=== PATIENT | female | born 1970 | race Caucasian/White ===

== ENCOUNTER 2025-09-06 22:20 | Inpatient (IN) | payer MEDICAID ==
[~2025-09-06] VITALS: Ht 162.6 cm; Wt 80.1 kg
--- NOTE | 2025-09-06 23:03 | ED.PDOC ---
Back pain HPI HPI Comments 55 y/o F is BIBA from private residence for c/c of right hip pain s/p mechanical fall and injury. Patient reports falling and injuring her right hip after slipping and losing her balance at home 3 week ago. Denies any additional injuries or symptoms and losing consciousness then. She reports on being unable to bear weight and walk on her right leg, due to pain. Patient did not seek medical attention until today. She has been bound to her living room lounge chair at home and, occasionally, transitioning to a nearby commode to use the bathroom. EMS personnel reports on finding patient in said chair, with PMSC's intact and vitals stable and within normal limits. Past medical history: anxiety, COPD, HTN Past surgical history: denies Medications: Albuterol, Lisinopril FARIAS: HPI: Poor Historian. Complains of right hip pain status post mechanical fall from a standing position three weeks ago. Patient has been bed ridden since then. REVIEW OF SYSTEMS: CONSTITUTIONAL: Denies acute: fever, diaphoresis, chills, generalized weakness. HEAD: Denies acute: headache, photophobia Eyes: Denies acute: Double vision, vision loss, eye pain, eye discharge. EARS: Denies acute: tinnitus, hearing loss, ear discharge, ear pain, THROAT: Denies acute: sore throat, swelling, difficulty swallowing , pain with swallowing, change in voice. NECK: Denies acute: neck pain, neck swelling, stiff neck. HEART: Denies acute : chest pain, palpitations, LUNGS: Denies acute: SOB, wheezing, cough, hemoptysis ABDOMEN: Denies acute: abdominal pain, Nausea, Vomiting, diarrhea, melena , hematemesis, hematochezia SKIN: Denies acute: rash, redness, lesions, itchiness. EXTREMITIES: Denies acute: calf pain, numbness, tingling, weakness, denies pain in extremity. Denies acute: Low back pain. Neuro: Denies acute: focal neurological deficit, motor or sensory focal neurological deficit, tremors, seizure like activity, confusion, dizziness, change in mental status, loss of bowel or bladder function, cauda equina like symptoms. : Denies acute: dysuria, hematuria, flank pain, increase in urinary frequency. PSYCH: Denies acute: hallucination, suicidal ideation, homicidal ideation. FEMALE: Denies acute: abnormal vaginal bleeding, foul odor, unusual discharge. PHYSICAL EXAM: General: ----mild----acute distress, awake and alert. Head: normocephalic, atraumatic. No raccoon's eyes, no solomon sign. Neck: supple, trachea is midline, no swelling. Throat: Normal phonation. Eyes:, no erythema, no purulent discharge, no proptosis, no icterus. Heart: regular rate, regular rhythm, no significant murmur appreciated. Lungs: no apparent respiratory distress, Able to speak in full sentences. No wheezing, no rhonchi, no crackles. No stridors Clear to auscultation bilaterally. Abdomen: non tender to palpation, non distended, soft, no guarding, no rebound, + bowel sounds. Neuro: Awake, Alert, oriented to name, self, situation, follows commands GCS=15. Speech is normal. Skin: no petechia, no purpura, no cyanosis, non-pale, not jaundice. Lower extremities: --2/4 b/l - Pitting edema no deformity, no focal swelling, no calf TTP. Makes eye contact. Face: no apparent facial droop. ED COURSE: DISCLAIMER: This medical document was created using an electronic medical record system with voice recognition software and computerized dictation system. Although this document has been carefully reviewed, there might still be some phonetic and typographical errors. Occasional wrong-word or "sound-alike" substitutions may have occurred due to the inherent limitations of voice recognition software. These areas are purely typographical due to imperfections of the software programs and do not reflect any compromise in the patient's medical care. Please read the chart carefully and recognize, using context, where these substitutions have occurred. Chief Complaint: Lower Extremity Time Seen by MD: 22:50 Primary Care Provider: MINGO Reviewed Notes: Crabbing Machine Operator Notes, Allergies Allergies: Coded Allergies: Penicillins (Verified Allergy, Unknown, 10/14/14) Information Source: Patient, Emergency Med Personnel Mode of Arrival: EMS Past Medical History PAST MEDICAL HISTORY: COPD Surgical History: AIR VICE MARSHAL History: No Pertinent AIR VICE MARSHAL History Family History Family History: No family hx of Cancer, Unobtainable Social History Smoker: Cigarettes Alcohol: Occasionally Drugs: Denies Drug Use Lives In: Home Was a procedure done? Was a procedure done?: No Back Pain Differential Dx Differential Diagnosis: Fracture, Musculoskeletal Pain, Strain, Other (Dislocation, referred pain, hematoma, neurovascular injury) X-Ray, Labs, Meds, VS Vital Signs Date Time Temp Pulse Resp B/P (MAP) Pulse Ox O2 Delivery O2 Flow Rate FiO2 09/07/25 03:04 98.1 90 20 127/69 (88) 97 98.1 09/07/25 00:09 102 18 154/92 (112) 100 09/06/25 22:49 98.2 110 18 153/82 94 98.2 Lab Test 09/06/25 23:02 Range/Units White Blood Count 8.3 4.4-10.8 10^3/uL Red Blood Count 3.62 L 4.0-5.20 10^6/uL Hemoglobin 10.7 L 12.2-16.2 g/dL Hematocrit 32.8 L 36.0-46.0 % Mean Corpuscular Volume 90.7 80.0-100.0 fL Mean Corpuscular Hemoglobin 29.5 28.0-32.0 pg Mean Corpuscular Hemoglobin Concent 32.6 32.0-36.0 g/dL Red Cell Distribution Width 16.2 H 11.8-14.3 % Platelet Count 563 H 140-450 10^3/uL Mean Platelet Volume 6.8 L 6.9-10.8 fL Neutrophils (%) (Auto) 73.4 37.0-80.0 % Lymphocytes (%) (Auto) 15.2 10.0-50.0 % Monocytes (%) (Auto) 9.2 0.0-12.0 % Eosinophils (%) (Auto) 1.4 0.0-7.0 % Basophils (%) (Auto) 0.8 0.0-2.0 % Neutrophils # (Auto) 6.1 1.6-8.6 10 ^3/uL Lymphocytes # (Auto) 1.3 0.4-5.4 10 ^3/uL Monocytes # (Auto) 0.8 0-1.3 10 ^3/uL Eosinophils # (Auto) 0.1 0-0.8 10 ^3/uL Basophils # (Auto) 0.1 0-0.2 10 ^3/uL Nucleated Red Blood Cells 0.0 % Sodium Level 133 L 136-145 mmol/L Potassium Level 4.2 3.5-5.1 mmol/L Chloride Level 95 L 98-107 mmol/L Carbon Dioxide Level 29 20-31 mmol/L Anion Gap 9 5-15 Blood Urea Nitrogen 5 L 9-23 mg/dL Creatinine 0.66 0.550-1.02 mg/dL Glomerular Filtration Rate Calc 102 >90 mL/min BUN/Creatinine Ratio 7.6 L 10.0-20.0 Serum Glucose 87 74-106 mg/dL Calcium Level 8.8 8.7-10.4 mg/dL Total Bilirubin 0.3 0.2-1.0 mg/dL Aspartate Amino Transferase (AST) 20 13-40 U/L Alanine Aminotransferase (ALT) 14 7-40 U/L Alkaline Phosphatase 93 46-116 U/L Troponin I High Sensitivity 4 </=34 ng/L B-Type Natriuretic Peptide 35.20 0-100 pg/mL Total Protein 6.3 5.7-8.2 g/dL Albumin 3.6 3.2-4.8 g/dL Current Medications Medications (Trade) Dose Ordered Sig/Cheryl Route Start Time Stop Time Status Last Admin Acetaminophen/ Hydrocodone Bitart ([place] 5/325MG Tab) 1 tab ONCE ONCE PO 09/07/25 03:15 09/07/25 03:16 DC 09/07/25 03:15 [place] [id number] Ph: [phone] DIAGNOSTIC IMAGING Diagnostic Imaging Report : [id number] Signed PATIENT: KAMERON FARIAS ACCT: [id number] UNIT: [id number] : 1970 LOC: ER ROOM / BED: / AGE / SEX: 55 / F ADM STATUS: REG ER SERVICE [id number] ORDERING PHYSICIAN: AD PÉREZ DO PROCEDURE(s): ABPL - CT AB PEL WO CON-NO ORAL OR IV REASON: fall, R HIP PAIN ORDER NUMBER(s): [id number], ACCESSION NUMBER(s): [id number] Exam: CT CT AB PEL WO CON-NO ORAL OR IV History: fall, R HIP PAIN Comparison Study: None Technique: Multidetector spiral CT of the abdomen was performed from lung bases to pubic symphysis. Imaging was performed without IV contrast. Axial, coronal and sagittal multiplanar reformats were obtained from the axial data set by the technologist. Radiation Dose : 1. Abdomen/Pelvis: CTDIvol 6.68 mGy, DLP 388.74 mGy*cm. Findings: Evaluation of solid organs is limited due to lack of intravenous contrast use. Lung Bases: No acute or significant lung base finding. Normal heart size. No pleural or pericardial effusion. Liver: The liver is normal in size. No focal lesions. Gallbladder and Biliary Tree: Unremarkable Spleen: Unremarkable Pancreas: The pancreas is grossly normal in appearance. Adrenal Glands: Unremarkable Kidneys: Kidneys are grossly normal without calculi or hydronephrosis. Bladder: Grossly unremarkable for degree of distention. Bowel: The stomach is grossly normal in appearance. Small bowel and colon are normal in caliber and distribution. The appendix is not visualized; however, no secondary findings of acute appendicitis identified. Ascites: Absent Lymphadenopathy: No mesenteric, retroperitoneal or periportal lymphadenopathy. Abdominal Wall and Mesentery: Unremarkable. Vasculature: The visualized abdominal aorta is normal in size and caliber. Bertha luation of abdominal and pelvic vessels is limited due to lack of intravenous contrast. Pelvic Organs: Unremarkable Musculoskeletal: Comminuted mildly displaced intertrochanteric proximal right femoral fracture with subtrochanteric extension. No large focal hematoma. Hip joint is congruent. No significant hemo arthrosis. IMPRESSION: Comminuted mildly displaced intertrochanteric proximal right femoral fracture with subtrochanteric extension. Radiation optimization: All CT scans at this facility use at least one of these dose optimization techniques: automated exposure control mA and/or kV adjustment per patient size (includes targeted exams where dose is matched to clinical indication) or iterative reconstruction. ATED BY: KAITLYNN NEWBERRY MD DICTATED DATE/TIME: 09/06/252351 SIGNED BY: KAITLYNN NEWBERRY MD SIGNED DATE/TIME: 09/06/252351 CC: Time of 1ST Reevaluation: 22:50 Reevaluation 1ST: Unchanged Patient Education/Counseling: Diagnosis, Treatment Family Education/Counseling: No Family Present Comments MDM: patient presented with the above HPI.---remote fall and right hip p ain---workup was initiated. patient was found with the above mentioned diagnosis. the following medications were ordered: please refer to order lists of meds and tests obtained by myself Dr. Pérez. Patient ED course and VS have been stabilized. Patient has been reassessed in the ED and remained in a stable condition. Pertinent incidental findings were discussed with the patient and/or family. Patient/family voices understanding and is agreeable with plan. Patient has been observed in the ED adequate length of time to insure improvement/stability. Escalation of care considered: Consideration of escalation to observation or admission Patient found with femoral fracture. Patient is neurovascularly intact in the affected extremity. Patient was ADMITTED to the medicine team for further evaluation and treatment of their presentation. All the reports of any imaging studies that were ordered by myself were reviewed by myself. SEPSIS Sepsis Screen Date sepsis recognized/suspect: Sep 06, 2025 Time Sepsis recognized/suspect: 2242 Recent Procedure: No On Antibiotic Therapy: No Respiratory Rate >20: No Heart Rate >90: No Temp<36 C (96.8 F) or >38.3 C: No SBP <90 or MAP <65 mmHG: No New Acute Mental Status Change: No Is the patient on CPAP, BIPAP,: No Physician Orders Ward Attendant (09/06/25 ) Ct Ab Pel Wo Con-No Oral Or Iv (09/06/25 22:55) Bilat Lower Dvt (09/06/25 22:55) Vital Signs Date Time Temp Pulse Resp B/P (MAP) Pulse Ox O2 Delivery O2 Flow Rate FiO2 09/07/25 03:04 98.1 90 20 127/69 (88) 97 98.1 09/07/25 00:09 102 18 154/92 (112) 100 09/06/25 22:49 98.2 110 18 153/82 94 98.2 Laboratory Tests Test 09/06/25 23:02 White Blood Count 8.3 10^3/uL (4.4-10.8) Departure 1 Departure Time of Disposition: 00:11 Impression: Primary Impression: Right femoral fracture Disposition: ADMITTED INPATIENT Admit to: Tele Condition: Guarded Discharged With: Self Critical Care Note Critical Care Time?: No I personally scribed for AD PÉREZ DO ([email or web address]) on 09/06/25 at 23:03. Electronically submitted by Ty Hayden ([email or web address]). I personally scribed for AD PÉREZ DO ([email or web address]) on 09/07/25 at 02:08. Electronically submitted by Ty Hayden ([email or web address]). AD PÉREZ DO Sep 06, 2025 23:03
[2025-09-06 23:22] LABS: Hemoglobin 10.7 g/dL (12.2-16.2); Nucleated Red Blood Cells % 0.0 %
[2025-09-06 23:24] LABS: Hematocrit 32.8 % (36.0-46.0); Mean Corpuscular Hemoglobin 29.5 pg (28.0-32.0); Mean Corpuscular Volume 90.7 fL (80.0-100.0)
[2025-09-06 23:35] LABS: Alanine Aminotransferase 14 U/L (7-40); Albumin 3.6 g/dL (3.2-4.8); Alkaline Phosphatase 93 U/L (46-116); Anion Gap 9 (5-15); BUN/Creatinine Ratio 7.6 (10.0-20.0); Bilirubin, Total 0.3 mg/dL (0.2-1.0); Calcium 8.8 mg/dL (8.7-10.4); Carbon Dioxide 29 mmol/L (20-31); Glucose 87 mg/dL (74-106); Potassium 4.2 mmol/L (3.5-5.1); Total Protein 6.3 g/dL (5.7-8.2)
[2025-09-06 23:36] LABS: Blood Urea Nitrogen 5 mg/dL (9-23); Chloride 95 mmol/L (98-107); Sodium 133 mmol/L (136-145)
--- NOTE | 2025-09-06 23:36 | DVH ---
Bilateral lower extremity venous duplex Clinical History: SWELLING Comparison: None Technique: Duplex Doppler evaluation of the deep venous systems of both lower extremities from the common femoral veins to the popliteal veins including color Doppler and spectral/pulsed waveform analysis was performed. Findings: RIGHT SIDE: The common femoral vein demonstrates appropriate compressibility and waveform variability. There is compressibility/patency of the great saphenous vein at the proximal thigh. The femoral vein demonstrates appropriate compressibility and waveform variability. The deep femoral vein demonstrates appropriate compressibility and waveform variability. The popliteal vein demonstrates appropriate compressibility and waveform variability. There is normal compressibility at the tibioperoneal trunk. LEFT SIDE: The common femoral vein demonstrates appropriate compressibility and waveform variability. There is compressibility/patency of the great saphenous vein at the proximal thigh. The femoral vein demonstrates appropriate compressibility and waveform variability. The deep femoral vein demonstrates appropriate compressibility and waveform variability. The popliteal vein demonstrates appropriate compressibility and waveform variability. There is normal compressibility at the tibioperoneal trunk. Impression: No right or left femoropopliteal venous thrombosis.
--- NOTE | 2025-09-06 23:54 | DVH ---
Exam: CT CT AB PEL WO CON-NO ORAL OR IV History: fall, R HIP PAIN Comparison Study: None Technique: Multidetector spiral CT of the abdomen was performed from lung bases to pubic symphysis. Imaging was performed without IV contrast. Axial, coronal and sagittal multiplanar reformats were obtained from the axial data set by the technologist. Radiation Dose : 1. Abdomen/Pelvis: CTDIvol 6.68 mGy, DLP 388.74 mGy*cm. Findings: Evaluation of solid organs is limited due to lack of intravenous contrast use. Lung Bases: No acute or significant lung base finding. Normal heart size. No pleural or pericardial effusion. Liver: The liver is normal in size. No focal lesions. Gallbladder and Biliary Tree: Unremarkable Spleen: Unremarkable Pancreas: The pancreas is grossly normal in appearance. Adrenal Glands: Unremarkable Kidneys: Kidneys are grossly normal without calculi or hydronephrosis. Bladder: Grossly unremarkable for degree of distention. Bowel: The stomach is grossly normal in appearance. Small bowel and colon are normal in caliber and distribution. The appendix is not visualized; however, no secondary findings of acute appendicitis identified. Ascites: Absent Lymphadenopathy: No mesenteric, retroperitoneal or periportal lymphadenopathy. Abdominal Wall and Mesentery: Unremarkable. Vasculature: The visualized abdominal aorta is normal in size and caliber. Evaluation of abdominal and pelvic vessels is limited due to lack of intravenous contrast. Pelvic Organs: Unremarkable Musculoskeletal: Comminuted mildly displaced intertrochanteric proximal right femoral fracture with subtrochanteric extension. No large focal hematoma. Hip joint is congruent. No significant hemo arthrosis. IMPRESSION: Comminuted mildly displaced intertrochanteric proximal right femoral fracture with subtrochanteric extension. Radiation optimization: All CT scans at this facility use at least one of these dose optimization techniques: automated exposure control mA and/or kV adjustment per patient size (includes targeted exams where dose is matched to clinical indication) or iterative reconstruction.
[2025-09-07] MEDS: HYDROcodone-ACET 5/325MG TAB PO ONE (03:15)
--- NOTE | 2025-09-07 05:10 | DVHHP2 ---
History of Present Illness Reason for Visit: Right femoral fracture History of Present Illness The patient is a 55-year-old female with past medical history of anxiety, COPD, and hypertension who presented to [facility] ED with complaint of right hip pain. Patient reports that she slipped, losing her balance, and fall to her right hip with sustained injury at home 3 weeks ago. Patient did not seek medical attention initially, now unable to bear weight and walk on her right hip due to severe pain. She has been bound to her living room lounge chair at home and, occasionally, transitioning to a nearby commode to use the bathroom. Patient was seen and evaluated in the ED, laboratory data shows WBC 8.3, hemoglobin 10.7, hematocrit 32.8, platelets 563, sodium 133, potassium 4.2, BUN 5, creatinine 0.66, GFR 102, glucose 87, calcium 8.8, troponin 4, BNP 35.20, blood pressure 154/92, heart rate 90, temperature 98.1 F, O2 saturation 97% on room air. Abdomen/pelvis CT revealing comminuted mildly displaced intratrochanteric proximal right femoral fracture with subtrochanteric e xtension. Please see medication orders section in the computer. On my assessment, patient denied chest pain, no headache, dizziness, diaphoresis, loss of consciousness, shortness of breaths, no abdominal pain, nausea, vomiting, fever, no chills. Patient was admitted for further evaluation and medical management. Past Medical History ANXIETY, COPD, HTN Past Surgical History Family History Reviewed, noncontributory to the management of this case. Past Social History The patient lives at home, smokes cigarettes, drinks alcohol occasionally, denies illicit drugs abuse. Review of Systems Constitutional: Yes: Weakness; No: Fever, Chills, Sweats, Malaise, Other Eyes: No: Pain, Vision change, Conjunctivae inflammation, Eyelid inflammation, Other, Redness ENT: No: Ear pain, Ear discharge, Nose pain, Nose discharge, Nose congestion, Mouth pain, Mouth swelling, Throat pain, Throat swelling, Other Respiratory: No: Cough, Dry, Shortness of breath, SOB with excertion, Wheezing, Hemoptysis, Pleuritic Pain, Sputum, Wheezing, Other Cardiovascular: No: Chest Pain, Palpitations, Orthopnea, Paroxysmal Noc. Dyspnea, Edema, Lt Headedness, Other Gastrointestinal: No: Nausea, Vomiting, Abdominal Pain, Diarrhea, Constipation, Melena, Hematochezia, Other Genitourinary: No Dysuria, No Frequency, No Incontinence, No Hematuria, No Retention, No Other Musculoskeletal: other (Right hip pain); No: neck pain, shoulder pain, arm pain, back pain, hand pain, leg pain, foot pain Skin: No: Rash, Lesions, Jaundice, Bruising, Other Neurological: No: Weakness, Numbness, Incoordination, Change in speech, Confusion, Seizures, Other Allergies: Coded Allergies: Penicillins (Verified Allergy, Unknown, 10/14/14) Exam Vital Signs Vital Signs Date Time Temp Pulse Resp B/P (MAP) Pulse Ox O2 Delivery O2 Flow Rate FiO2 09/07/25 03:04 98.1 90 20 127/69 (88) 97 98.1 General Appearance: Alert, Oriented X3, Cooperative, No acute distress HEENT: Atraumatic, PERRLA, EOMI, Mucous membr. moist/pink Respiratory: Normal air movement Cardiovascular: Regular rate, Normal S1, Normal S2, No murmurs Abdominal: Normal bowel sounds, Soft, No tenderness, No hepatospenomegaly, No masses Extremities: No clubbing, No cyanosis, No edema, Normal pulses, Other (Right hip tenderness) Skin: No rashes, No significant lesion Neuro: Normal speech, Normal tone, Sensation intact, Cranial nerves 3-12 NL, Reflexes 2+, Other (Generalized weakness) Psych/Mental Status: Mental status NL, Mood NL Labs/Xrays Labs Test 09/06/25 23:02 Range/Units White Blood Count 8.3 4.4-10.8 10^3/uL Red Blood Count 3.62 L 4.0-5.20 10^6/uL Hemoglobin 10.7 L 12.2-16.2 g/dL Hematocrit 32.8 L 36.0-46.0 % Mean Corpuscular Volume 90.7 80.0-100.0 fL Mean Corpuscular Hemoglobin 29.5 28.0-32.0 pg Mean Corpuscular Hemoglobin Concent 32.6 32.0-36.0 g/dL Red Cell Distribution Width 16.2 H 11.8-14.3 % Platelet Count 563 H 140-450 10^3/uL Mean Platelet Volume 6.8 L 6.9-10.8 fL Neutrophils (%) (Auto) 73.4 37.0-80.0 % Lymphocytes (%) (Auto) 15.2 10.0-50.0 % Monocytes (%) (Auto) 9.2 0.0-12.0 % Eosinophils (%) (Auto) 1.4 0.0-7.0 % Basophils (%) (Auto) 0.8 0.0-2.0 % Neutrophils # (Auto) 6.1 1.6-8.6 10 ^3/uL Lymphocytes # (Auto) 1.3 0.4-5.4 10 ^3/uL Monocytes # (Auto) 0.8 0-1.3 10 ^3/uL Eosinophils # (Auto) 0.1 0-0.8 10 ^3/uL Basophils # (Auto) 0.1 0-0.2 10 ^3/uL Nucleated Red Blood Cells 0.0 % Sodium Level 133 L 136-145 mmol/L Potassium Level 4.2 3.5-5.1 mmol/L Chloride Level 95 L 98-107 mmol/L Carbon Dioxide Level 29 20-31 mmol/L Anion Gap 9 5-15 Blood Urea Nitrogen 5 L 9-23 mg/dL Creatinine 0.66 0.550-1.02 mg/dL Glomerular Filtration Rate Calc 102 >90 mL/min BUN/Creatinine Ratio 7.6 L 10.0-20.0 Serum Glucose 87 74-106 mg/dL Calcium Level 8.8 8.7-10.4 mg/dL Total Bilirubin 0.3 0.2-1.0 mg/dL Aspartate Amino Transferase (AST) 20 13-40 U/L Alanine Aminotransferase (ALT) 14 7-40 U/L Alkaline Phosphatase 93 46-116 U/L Troponin I High Sensitivity 4 </=34 ng/L B-Type Natriuretic Peptide 35.20 0-100 pg/mL Total Protein 6.3 5.7-8.2 g/dL Albumin 3.6 3.2-4.8 g/dL PATIENT: KAMERON FARIAS ACCT: [id number] UNIT: [id number] : 1970 LOC: ER ROOM / BED: / AGE / SEX: 55 / F ADM STATUS: REG ER SERVICE [id number] ORDERING PHYSICIAN: AD PÉREZ DO PROCEDURE(s): ABPL - CT AB PEL WO CON-NO ORAL OR IV REASON: fall, R HIP PAIN ORDER NUMBER(s): [id number], ACCESSION NUMBER(s): [id number] Exam: CT CT AB PEL WO CON-NO ORAL OR IV History: fall, R HIP PAIN Comparison Study: None Technique: Multidetector spiral CT of the abdomen was performed from lung bases to pubic symphysis. Imaging was performed without IV contrast. Axial, coronal and sagittal multiplanar reformats were obtained from the axial data set by the technologist. Radiation Dose: 1. Abdomen/Pelvis: CTDIvol 6.68 mGy, DLP 388.74 mGy*cm. Findings: Evaluation of solid organs is limited due to lack of intravenous contrast use. Lung Bases: No acute or significant lung base finding. Normal heart size. No pleural or pericardial effusion. Liver: The liver is normal in size. No focal lesions. Gallbladder and Biliary Tree: Unremarkable Spleen: Unremarkable Pancreas: The pancreas is grossly normal in appearance. Adrenal Glands: Unremarkable Kidneys: Kidneys are grossly normal without calculi or hydronephrosis. Bladder: Grossly unremarkable for degree of distention. Bowel: The stomach is grossly normal in appearance. Small bowel and colon are normal in caliber and distribution. The appendix is not visualized; however, no secondary findings of acute appendicitis identified. Ascites: Absent Lymphadenopathy: No mesenteric, retroperitoneal or periportal lymphadenopathy. Abdominal Wall and Mesentery: Unremarkable. Vasculature: The visualized abdominal aorta is normal in size and caliber. Evaluation of abdominal and pelvic vessels is limited due to lack of intravenous contrast. Pelvic Organs: Unremarkable Musculoskeletal: Comminuted mildly displaced intertrochanteric proximal right femoral fracture with subtrochanteric extension. No large focal hematoma. Hip joint is congruent. No significant hemo arthrosis. IMPRESSION: Comminuted mildly displaced intertrochanteric proximal right femoral fracture with subtrochanteric extension. ORDERING PHYSICIAN: AD PÉREZ DO PROCEDURE(s): BLDVT - BiLat Lower DVT REASON: SWELLING ORDER NUMBER(s): [id number], ACCESSION NUMBER(s): [id number] Bilateral lower extremity venous duplex Clinical History: SWELLING Comparison: None Technique: Duplex Doppler evaluation of the deep venous systems of both lower extremities from the common femoral veins to the popliteal veins including color Doppler and spectral/pulsed waveform analysis was performed. Findings: RIGHT SIDE: The common femoral vein demonstrates appropriate compressibility and waveform variability. There is compressibility/patency of the great saphenous vein at the proximal thigh. The femoral vein demonstrates appropriate compressibility and waveform variability. The deep femoral vein demonstrates appropriate compressibility and waveform variability. The popliteal vein demonstrates appropriate compressibility and waveform variability. There is normal compressibility at the tibioperoneal trunk. LEFT SIDE: The common femoral vein demonstrates appropriate compressibility and waveform variability. There is compressibility/patency of the great saphenous vein at the proximal thigh. The femoral vein demonstrates appropriate compressibility and waveform variability. The deep femoral vein demonstrates appropriate compressibility and waveform variability. The popliteal vein demonstrates appropriate compressibility and waveform variability. There is normal compressibility at the tibioperoneal trunk. Impression: No right or left femoropopliteal venous thrombosis. SEPSIS Sepsis Screen Date sepsis recognized/suspect: Sep 06, 2025 Time Sepsis recognized/suspect: 2242 Recent Procedure: No On Antibiotic Therapy: No Respiratory Rate >20: No Heart Rate >90: No Temp<36 C (96.8 F) or >38.3 C: No SBP <90 or MAP <65 mmHG: No New Acute Mental Status Change: No Is the patient on CPAP, BIPAP,: No Physician Orders [place] [employer] (09/06/25 ) Ct Ab Pel Wo Con-No Oral Or Iv (09/06/25 22:55) Bilat Lower Dvt (09/06/25 22:55) Complete Blood Count (09/07/25 05:04) Comprehensive Metabolic Panel (09/07/25 05:04) * Orthopedic Consult (09/07/25 05:04) Admit (09/07/25 05:04) Allergies (09/07/25 05:04) Code Status (09/07/25 05:04) Oxygen Per Hour (09/07/25 05:04) Hydrocodone-Acet 5/325mg Tab ([place] 5/32 (09/07/25 05:15) Ondansetron Hcl (Zofran) (09/07/25 05:15) Docusate Sodium Capsule (Colace Capsule) (09/07/25 05:15) Enoxaparin Sodium (Lovenox) (09/07/25 10:00) Fall Risk Precautions In Place QSHIFT (09/07/25 05:04) Complete Blood Count (09/08/25 04:00) Comprehensive Metabolic Panel (09/08/25 04:00) Npo (Nothing By Mouth) Diet (09/07/25 Breakfast) Condition: Serious (09/07/25 05:04) Acetaminophen Tablet (Tylenol Tablet) (09/07/25 05:15) Maintain Bed Rest (09/07/25 05:04) Morphine Sulfate Injection (09/07/25 05:15) Sequential Compression Device (09/07/25 ) Nitroglycerin Sublingual (Ntrostat Subli (09/07/25 05:15) Morphine Sulfate Injection (09/07/25 05:15) Stat Ekg For Chest Pain (09/07/25 05:04) Notify Of Changes From Base (09/07/25 05:04) Cook Night For 24 Hours (09/07/25 05:04) Emergency Dysrhythmia Protocol (09/07/25 05:04) Rhythm Strips Once Every Shift (09/07/25 05:04) Oxygen By Nasal Cannula (09/07/25 05:04) D5w/Sod Chlo 0.9% Ns (09/07/25 05:15) Vital Signs Date Time Temp Pulse Resp B/P (MAP) Pulse Ox O2 Delivery O2 Flow Rate FiO2 09/07/25 03:04 98.1 90 20 127/69 (88) 97 98.1 09/07/25 00:09 102 18 154/92 (112) 100 09/06/25 22:49 98.2 110 18 153/82 94 98.2 Laboratory Tests Test 09/06/25 23:02 White Blood Count 8.3 10^3/uL (4.4-10.8) Medications Medications Dose Ordered Sig/Cheryl Route Start Time Stop Time Status Last Admin Dose Admin Acetaminophen/ Hydrocodone Bitart 1 tab ONCE ONCE PO 09/07/25 03:15 09/07/25 03:16 DC 09/07/25 03:15 1 TAB Assessment/Plan Assessment/Plan Right femoral fracture Hyponatremia Thrombocytosis Generalized weakness Plan 1. Admit to telemetry unit 2. Breathing treatment 3. Pain control management 4. Management of fluids and electrolytes 5. Consultation for orthopedic 6. Diagnostic tests abdomen/pelvis CT 7. DVT prophylaxis-on Lovenox 8. Repeat labs CBC, CMP in a.m. 9. Continue with current medical management 10. Treatment plan discussed with patient and RN. Patient verbalized understanding. Plan discussed with: Patient, Other (RN) My Orders Orders - DENISE WILSON DNP Procedure Category Date Status Time Complete Blood Count LAB 09/07/25 Verified 05:04 Comprehensive LAB 09/07/25 Verified Metabolic Panel 05:04 * Orthopedic Consult CONS 09/07/25 Verified 05:04 Admit ADMIT 09/07/25 Verified 05:04 Allergies [facility] 09/07/25 Verified 05:04 Code Status CODE 09/07/25 Verified 05:04 Oxygen Per Hour RT 09/07/25 Verified 05:04 Hydrocodone-Acet PHA 09/07/25 Verified 5/325mg Tab ([place] 05:15 Ondansetron Hcl PHA 09/07/25 Verified (Zofran) 05:15 Docusate Sodium PHA 09/07/25 Verified Capsule (Colace 05:15 Enoxaparin Sodium PHA 09/07/25 Verified (Lovenox) 10:00 Fall Risk Precautions [facility] 09/07/[address] 05:04 Complete Blood Count LAB 09/08/25 Verified 04:00 Comprehensive LAB 09/08/25 Verified Metabolic Panel 04:00 Npo (Nothing By DIET 09/07/25 Verified Mouth) Diet Breakfast Condition: Serious [facility] 09/07/25 Verified 05:04 Acetaminophen Tablet [facility] 09/07/25 Verified (Tylenol Tablet) 05:15 Maintain Bed Rest [facility] 09/07/25 Verified 05:04 Morphine Sulfate [facility] 09/07/25 Verified Injection 05:15 Sequential [facility] 09/07/25 Verified Compression Device Nitroglycerin [facility] 09/07/25 Verified Sublingual (Ntrostat 05:15 Morphine Sulfate [facility] 09/07/25 Verified Injection 05:15 Stat Ekg For Chest [facility] 09/07/25 Verified Pain 05:04 Notify Md Of Changes [facility] 09/07/25 Verified From Base 05:04 Cook Night For [facility] 09/07/25 Verified 24 Hours 05:04 Emergency Dysrhythmia [facility] 09/07/25 Verified Protocol 05:04 Rhythm Strips Once [facility] 09/07/25 Verified Every Shift 05:04 Oxygen By Nasal RT 09/07/25 Verified Cannula 05:04 D5w/Sod Chlo 0.9% Ns PHA 09/07/25 Verified 05:15 Problem List: (1) Right femoral fracture (2) Hyponatremia (3) Thrombocytosis (4) Generalized weakness Date of Service: Sep 07, 2025 Billing Provider: DENISE WILSON DNP Common Visit Codes: [id number] INP/OBS CARE (HIGH) DENISE WILSON DNP Sep 07, 2025 05:10
[2025-09-07] MEDS ORDERED: MORPHINE SULFATE INJ 2 MG/ml SYRG IV PRN (05:15)
[2025-09-07] MEDS: D5W/SOD CHLO 0.9% 1,000 ML IV SCH (05:15)
[2025-09-07] MEDS ORDERED: NITROGLYCERIN 0.4 MG SL TAB SL PRN (05:15)
[2025-09-07] MEDS ORDERED: ACETAMINOPHEN 325 MG TAB PO PRN (05:15)
[2025-09-07] MEDS ORDERED: DOCUSATE SOD 100 MG CAP PO PRN (05:15)
[2025-09-07] MEDS ORDERED: ONDANSETRON HCL 4 MG/2 ML VIAL IV PRN (05:15)
[2025-09-07 06:55] VITALS: PULSE 80; RESP 20; O2SAT 97
[2025-09-07 06:57] LABS: Hematocrit 28.2 % (36.0-46.0); Hemoglobin 9.5 g/dL (12.2-16.2); Mean Corpuscular Hemoglobin 30.6 pg (28.0-32.0); Mean Corpuscular Volume 91.1 fL (80.0-100.0); Nucleated Red Blood Cells % 0.0 %
[2025-09-07 07:12] LABS: Alanine Aminotransferase 11 U/L (7-40); Alkaline Phosphatase 81 U/L (46-116); Anion Gap 10 (5-15); BUN/Creatinine Ratio 8.3 (10.0-20.0); Bilirubin, Total 0.5 mg/dL (0.2-1.0); Carbon Dioxide 28 mmol/L (20-31); Potassium 4.3 mmol/L (3.5-5.1)
[2025-09-07 07:16] LABS: Albumin 3.1 g/dL (3.2-4.8); Blood Urea Nitrogen 5 mg/dL (9-23); Calcium 8.6 mg/dL (8.7-10.4); Chloride 96 mmol/L (98-107); Glucose 121 mg/dL (74-106); Sodium 134 mmol/L (136-145); Total Protein 5.5 g/dL (5.7-8.2)
[2025-09-07 07:34] VITALS: PULSE 102; RESP 12; O2SAT 99
--- NOTE | 2025-09-07 07:50 | DVH ---
CLINICAL INDICATION: fracture TECHNIQUE: XY R HIP COMPLETE XRAY Comparison: None FINDINGS/IMPRESSION: : Comminuted , angulated and displaced fracture involving the greater trochanter and proximal femur.
[2025-09-07] MEDS: SODIUM CHLORIDE 0.9% 1,000 ML IV SCH (08:24)
[2025-09-07] MEDS: MORPHINE SULFATE INJ 2 MG/ml SYRG IV PRN (08:26)
[2025-09-07 08:30] LABS: INR 0.96 (0.9-1.15); Prothrombin Time 10.2 sec (9.3-11.8)
[2025-09-07] MEDS: HYDROcodone-ACET 5/325MG TAB PO PRN (10:32)
[2025-09-07] MEDS: ENOXAPARIN SOD 40 MG/0.4 ML SYRINGE SC SCH (10:33)
--- NOTE | 2025-09-07 13:11 | DVHPN2 ---
Subjective 55-year-old female who fell about 3 weeks ago outside of her house when she was drunk and she continued to ambulate on her leg on and off with assistance however the pain was not subsiding and she has been more disabled since then to the point she decided to come to the emergency room now and was found to have an intertrochanteric fracture of the right femur Changes from previous H/P or p: Changes Eyes: No Pain, No Vision change, No Conjunctivae inflammation, No Eyelid inflammation, No Other, No Redness ENT: No Ear pain, No Ear discharge, No Nose pain, No Nose discharge, No Nose congestion, No Mouth pain, No Mouth swelling, No Throat pain, No Throat swelling, No Other Cardiovascular: No Chest Pain, No Palpitations, No Orthopnea, No Paroxysmal Noc. Dyspnea, No Edema, No Lt Headedness, No Other Respiratory: No Cough, No Dry, No Shortness of breath, No SOB with excertion, No Wheezing, No Hemoptysis, No Pleuritic Pain, No Sputum, No Other Gastrointestinal: No Nausea, No Vomiting, No Abdominal Pain, No Diarrhea, No Constipation, No Melena, No Hematochezia, No Other Genitourinary: No Dysuria, No Frequency, No Incontinence, No Hematuria, No Retention, No Other Musculoskeletal: other (Right hip pain); No neck pain, No shoulder pain, No arm pain, No back pain, No hand pain, No leg pain, No foot pain Skin: No Rash, No Lesions, No Jaundice, No Bruising, No Other Objective Vitals Vital Signs Date Time Temp Pulse Resp B/P (MAP) Pulse Ox O2 Delivery O2 Flow Rate FiO2 09/07/25 09:00 79 18 111/72 09/07/25 07:34 99 Room Air* 0 21 09/07/25 07:34 97.7 97.7 General Appearance: Alert, Oriented X3, Cooperative, No acute distress Lungs: Clear to auscultation, Normal air movement Cardiovascular: Regular rate, Normal S1, Normal S2, No murmurs Abdomen: Normal bowel sounds, Soft, No tenderness Extremities: Other (1+ edema bilaterally in the lower extremities) Medications Current Medications Medications Dose Ordered Sig/Cheryl Route Start Time Stop Time Status Last Admin Dose Admin Acetaminophen/ Hydrocodone Bitart 1 tab Q4HP PRN PO 09/07/25 05:15 09/07/25 10:32 1 TAB Ondansetron HCl 4 mg Q4HP PRN IV 09/07/25 05:15 Docusate Sodium 100 mg BIDPRN PRN PO 09/07/25 05:15 Enoxaparin Sodium 40 mg DAILY SC 09/07/25 10:00 09/07/25 10:33 40 MG Acetaminophen 650 mg Q6HP PRN PO 09/07/25 05:15 Morphine Sulfate 2 mg Q4HPRN PRN IV 09/07/25 05:15 09/07/25 08:26 2 MG Nitroglycerin 0.4 mg Q5MINP PRN SL 09/07/25 05:15 Morphine Sulfate 2 mg Q30M PRN IV 09/07/25 05:15 Sodium Chloride 1,000 ml @ 75 mls/hr [id number] IV 09/07/25 07:00 09/07/25 08:24 75 MLS/HR Laboratory Results Laboratory Tests 09/07/25 06:23 Chemistry Test 09/06/25 23:02 09/07/25 06:23 Albumin 3.6 g/dL (3.2-4.8) 3.1 g/dL (3.2-4.8) L Calcium Level 8.8 mg/dL (8.7-10.4) 8.6 mg/dL (8.7-10.4) L Total Protein 6.3 g/dL (5.7-8.2) 5.5 g/dL (5.7-8.2) L Coagulation Test 09/07/25 06:23 Prothrombin Time 10.2 sec (9.3-11.8) Prothrombin Time INR 0.96 (0.9-1.15) Cardiac Markers Test 09/06/25 23:02 B-Type Natriuretic Peptide 35.20 pg/mL (0-100) LFT Test 09/06/25 23:02 09/07/25 06:23 Alanine Aminotransferase (ALT) 14 U/L (7-40) 11 U/L (7-40) Alkaline Phosphatase 93 U/L (46-116) 81 U/L (46-116) Aspartate Amino Transferase (AST) 20 U/L (13-40) 21 U/L (13-40) Total Bilirubin 0.3 mg/dL (0.2-1.0) 0.5 mg/dL (0.2-1.0) Assessment/Plan Assessment/Plan Right intertrochanteric femur fracture Alcoholism Tobacco smoking Hypertension COPD Anxiety Plan Orthopedic consult Nicotine patch Ativan p.r.n. Librium Pain control as needed Tom catheter Lovenox Full code Advance directives discussed for 20 minutes Plan discussed with: Patient Date of Service: Sep 07, 2025 Billing Provider: SG LUTHER MD Common Visit Codes: [id number] INP/OBS CARE(HIGH) Secondary Visit Codes: [id number] CARE PLAN 30 MINUTES SG LUTHER MD Sep 07, 2025 13:11
[2025-09-07] MEDS: NICOTINE 21MG/24 HR TOPICAL PATCH TD ONE (13:29)
--- NOTE | 2025-09-07 15:09 | DVHINCON2 ---
Date of service: Sep 07, 2025 Reason for Consultation Right hip fracture History of Present Illness 55 yo F with hx of fall over 2 weeks ago with right hip pain/ unable to bear weight. Hx of COPD/chronic smoker/ alcoholism with 10 beers per day/ bilateral extremity swelling. No cp/sob/abd pain/nausea/vomiting Past Medical History Past medical history: anxiety, COPD, HTN, chronic smoker and alcoholism Past surgical history: denies Medications: Albuterol, Lisinopril Allergies: Coded Allergies: Penicillins (Verified Allergy, Unknown, 10/14/14) Current Medications Current Medications Medications (Trade) Dose Ordered Sig/Cheryl Route PRN Reason Start Time Stop Time Status Last Admin Acetaminophen/ Hydrocodone Bitart ([place] 5/325MG Tab) 1 tab Q4HP PRN PO MODERATE PAIN (4-6 PAIN SCALE) 09/07/25 05:15 09/07/25 10:32 Ondansetron HCl (Zofran) 4 mg Q4HP PRN IV NAUSEA / VOMITING 09/07/25 05:15 Docusate Sodium (Colace Capsule) 100 mg BIDPRN PRN PO FOR CONSTIPATION 09/07/25 05:15 Enoxaparin Sodium (Lovenox) 40 mg DAILY SC 09/07/25 10:00 09/07/25 10:33 Acetaminophen (Tylenol Tablet) 650 mg Q6HP PRN PO PAIN SCALE 1-3 OR TEMP>100.4 09/07/25 05:15 Morphine Sulfate 2 mg Q4HPRN PRN IV SEVERE PAIN (7-10 PAIN SCALE) 09/07/25 05:15 09/07/25 13:30 Nitroglycerin (Ntrostat Sublingual) 0.4 mg Q5MINP PRN SL FOR CHEST PAIN 09/07/25 05:15 Morphine Sulfate 2 mg Q30M PRN IV FOR CHEST PAIN 09/07/25 05:15 Dextrose/Sodium Chloride 1,000 ml @ 75 mls/hr [id number] IV 09/07/25 05:15 09/07/25 06:53 DC 09/07/25 05:15 Sodium Chloride 1,000 ml @ 75 mls/hr [id number] IV 09/07/25 07:00 09/07/25 13:08 DC 09/07/25 08:24 Nicotine (Nicoderm 21MG/ 24HR) 1 patch DAILY TD 09/08/25 10:00 Lorazepam (Ativan Inj) 0.5 mg Q6HP PRN IV ANXIETY 09/07/25 13:15 Review of Systems 10 point ROS is neg except per HPI Vital Signs Vital Signs Date Time Temp Pulse Resp B/P (MAP) Pulse Ox O2 Delivery O2 Flow Rate FiO2 09/07/25 13:30 95 18 111/72 09/07/25 07:34 99 Room Air* 0 21 09/07/25 07:34 97.7 97.7 Physical Exam NAD RLE: shortened +ta/gs/ehl/fhl swellign 3+ in legs Labs/Diagnostic Data Labs Test 09/07/25 06:23 09/06/25 23:02 Range/Units White Blood Count 8.2 4.4-10.8 10^3/uL Red Blood Count 3.09 L 4.0-5.20 10^6/uL Hemoglobin 9.5 L 12.2-16.2 g/dL Hematocrit 28.2 #L 36.0-46.0 % Mean Corpuscular Volume 91.1 80.0-100.0 fL Mean Corpuscular Hemoglobin 30.6 28.0-32.0 pg Mean Corpuscular Hemoglobin Concent 33.6 32.0-36.0 g/dL Red Cell Distribution Width 16.1 H 11.8-14.3 % Platelet Count 460 H 140-450 10^3/uL Mean Platelet Volume 6.9 6.9-10.8 fL Neutrophils (%) (Auto) 70.4 37.0-80.0 % Lymphocytes (%) (Auto) 15.3 10.0-50.0 % Monocytes (%) (Auto) 11.5 0.0-12.0 % Eosinophils (%) (Auto) 1.9 0.0-7.0 % Basophils (%) (Auto) 0.9 0.0-2.0 % Neutrophils # (Auto) 5.8 1.6-8.6 10 ^3/uL Lymphocytes # (Auto) 1.2 0.4-5.4 10 ^3/uL Monocytes # (Auto) 0.9 0-1.3 10 ^3/uL Eosinophils # (Auto) 0.2 0-0.8 10 ^3/uL Basophils # (Auto) 0.1 0-0.2 10 ^3/uL Nucleated Red Blood Cells 0.0 % Prothrombin Time 10.2 9.3-11.8 sec Prothrombin Time INR 0.96 0.9-1.15 Sodium Level 134 L 136-145 mmol/L Potassium Level 4.3 3.5-5.1 mmol/L Chloride Level 96 L 98-107 mmol/L Carbon Dioxide Level 28 20-31 mmol/L Anion Gap 10 5-15 Blood Urea Nitrogen 5 L 9-23 mg/dL Creatinine 0.60 0.550-1.02 mg/dL Glomerular Filtration Rate Calc 105 >90 mL/min BUN/Creatinine Ratio 8.3 L 10.0-20.0 Serum Glucose 121 H 74-106 mg/dL Calcium Level 8.6 L 8.7-10.4 mg/dL Total Bilirubin 0.5 0.2-1.0 mg/dL Aspartate Amino Transferase (AST) 21 13-40 U/L Alanine Aminotransferase (ALT) 11 7-40 U/L Alkaline Phosphatase 81 46-116 U/L Total Protein 5.5 L 5.7-8.2 g/dL Albumin 3.1 L 3.2-4.8 g/dL Troponin I High Sensitivity 4 </=34 ng/L B-Type Natriuretic Peptide 35.20 0-100 pg/mL Plan/Recommendation 55 yo F with comminuted right hip intertrochanter fracture - over 2 weeks old 1. I had a long discussion with the patient regarding her condition. Questions for patient answered. Risks benefits options and alternatives reviewed in depth. RIsks include but not exclusive to bleeding infection nerve injury hardware failure nonunion malunion chronic pain blood clots cardiac and pulmonary complications amputation and . Patient understands the morbidity and mortality of hip fractures in the elderly. She wishes to proceed with surgery 2. Plan for open reduction internal fixation of right hip fracture 3. npo/ivf 4. pain control Plan discussed with: Patient JAYLAN NEWBERRY MD Sep 07, 2025 15:09
--- NOTE | 2025-09-07 15:36 | DVH ---
CHEST RADIOGRAPH Indication: PRE-OPERATIVE Technique: Single frontal view of the chest was obtained COMPARISON: None FINDINGS: Lines and Tubes: None Lungs: Increased interstitial prominence. This may represent pulmonary vascular congestion and/or viral pneumonia. Pleura: No effusion. No pneumothorax. Cardiomediastinal contours: Unremarkable Bones: Unremarkable IMPRESSION: Increased interstitial prominence. This may represent pulmonary vascular congestion and/or viral pneumonia.
[2025-09-07 15:44] VITALS: BP 139/76; PULSE 91; RESP 18; TEMP 97.8; O2SAT 94
[2025-09-07] MEDS: LORazepam 2MG/ML-1ML VIAL IV PRN (16:45)
[2025-09-07 17:00] VITALS: BP 133/76; PULSE 90; RESP 18; TEMP 97.9; O2SAT 97
--- NOTE | 2025-09-07 17:00 | DVHSR ---
APPROVED REPORT EXAM: Two-dimensional and M-mode echocardiogram with Doppler and color Doppler. Blood Pressure: 139/76 mmHg INDICATION Pre-Op RISK FACTORS Height: 5'4", Weight: 140 DIMENSIONS LVDd 4.2 (3.8-5.7cm) LA (2D) 3.5 (1.9-4.0cm) Aortic Root 3.1 (2.0-3.7cm) LVDs 3.0 (2.5-4.0cm) LA (MM) (1.9-4.0cm) Aortic Cusp Exc 1.7 (1.5-2.0cm) EF (%) 60.0 (55-70%) Rt. Atrium 3.3 (1.9-4.0cm) Asc. Aorta cm IVSd 0.8 (0.7-1.1cm) RV (D) 3.5 (1.8-2.4cm) PWd 0.8 (0.7-1.1cm) Mitral Valve Mitral Mitral Stenosis E wave 1.11m/s MV Mean GR. mmHg A wave 0.84m/s MV Peak GR. mmHg E/A ratio 1.3 2D MVA cm2 DECEL Time 169ms PRESS 1/2 Time ms Aortic Valve Aortic Valve Aortic Stenosis V1 1.06m/s AO Mean GR. 5mmHg V2 1.54m/s AO Peak GR. 9mmHg LVOT Diameter 1.8 (1.8-2.4cm) Doppler LUIS 1.75cm2 Tricuspid Valve TR Velocity 3.31m/s RVSP 47mmHg Conclusion Technically good study sinus rhythm. Normal chamber sizes. Valves are normal. EF of 60% with normal RV function. Dopplers unremarkable. Moderate TR. No pericardial effusion masses or vegetations.
--- NOTE | 2025-09-07 18:30 | DVHINCON2 ---
Date Seen: Sep 07, [address] Huddleston Reason for Consultation Cardiac clearance History of Present Illness 55-year-old lady with a history of severe COPD and associated hypertension at a recent fall and hip fracture. She did not have a syncopal event. She denies chest pain. She does have shortness of breath secondary to COPD. She denies congestive heart failure, coronary artery disease. She continues to smoke and was diagnosed with COPD. Past Medical History Past Medical History ANXIETY, COPD, HTN Past Surgical History Past Surgical History History of Family History: Patient reports no known family medical history. Allergies: Coded Allergies: Penicillins (Verified Allergy, Unknown, 10/14/14) Current Medications Current Medications Medications (Trade) Dose Ordered Sig/Cheryl Route PRN Reason Start Time Stop Time Status Last Admin Acetaminophen/ Hydrocodone Bitart ([place] 5/325MG Tab) 1 tab Q4HP PRN PO MODERATE PAIN (4-6 PAIN SCALE) 09/07/25 05:15 09/07/25 15:42 Ondansetron HCl (Zofran) 4 mg Q4HP PRN IV NAUSEA / VOMITING 09/07/25 05:15 Docusate Sodium (Colace Capsule) 100 mg BIDPRN PRN PO FOR CONSTIPATION 09/07/25 05:15 Enoxaparin Sodium (Lovenox) 40 mg DAILY SC 09/07/25 10:00 09/07/25 10:33 Acetaminophen (Tylenol Tablet) 650 mg Q6HP PRN PO PAIN SCALE 1-3 OR TEMP>100.4 09/07/25 05:15 Morphine Sulfate 2 mg Q4HPRN PRN IV SEVERE PAIN (7-10 PAIN SCALE) 09/07/25 05:15 09/07/25 13:30 Nitroglycerin (Ntrostat Sublingual) 0.4 mg Q5MINP PRN SL FOR CHEST PAIN 09/07/25 05:15 Morphine Sulfate 2 mg Q30M PRN IV FOR CHEST PAIN 09/07/25 05:15 Dextrose/Sodium Chloride 1,000 ml @ 75 mls/hr [id number] IV 09/07/25 05:15 09/07/25 06:53 DC 09/07/25 05:15 Sodium Chloride 1,000 ml @ 75 mls/hr [id number] IV 09/07/25 07:00 09/07/25 13:08 DC 09/07/25 08:24 Nicotine (Nicoderm 21MG/ 24HR) 1 patch DAILY TD 09/08/25 10:00 Lorazepam (Ativan Inj) 0.5 mg Q6HP PRN IV ANXIETY 09/07/25 13:15 09/07/25 16:45 Review of Systems Constitutional: Yes: Weakness; No: Fever, Chills, Sweats, Malaise, Other Eyes: No: Pain, Vision change, Conjunctivae inflammation, Eyelid inflammation, Other, Redness ENT: No: Ear pain, Ear discharge, Nose pain, Nose discharge, Nose congestion, Mouth pain, Mouth swelling, Throat pain, Throat swelling, Other Respiratory: No: Cough, Dry, Shortness of breath, SOB with excertion, Wheezing, Hemoptysis, Pleuritic Pain, Sputum, Wheezing, Other Cardiovascular: No: Chest Pain, Palpitations, Orthopnea, Paroxysmal Noc. Dyspnea, Edema, Lt Headedness, Other Gastrointestinal: No: Nausea, Vomiting, Abdominal Pain, Diarrhea, Constipation, Melena, Hematochezia, Other Genitourinary: No Dysuria, No Frequency, No Incontinence, No Hematuria, No Retention, No Other Musculoskeletal: other (Right hip pain); No: neck pain, shoulder pain, arm pain, back pain, hand pain, leg pain, foot pain Skin: No: Rash, Lesions, Jaundice, Bruising, Other Neurological: No: Weakness, Numbness, Incoordination, Change in speech, Co nfusion, Seizures, Other Vital Signs Vital Signs Date Time Temp Pulse Resp B/P (MAP) Pulse Ox O2 Delivery O2 Flow Rate FiO2 09/07/25 17:00 97.9 90 18 133/76 (95) 97 97.9 09/07/25 15:44 Nasal Cannula* 3 32 Physical Exam Patient is awake alert and oriented no acute distress. Her vitals are as noted. HEENT examination is otherwise unremarkable. Orally well hydrated. Trachea central neck supple thyroid is nonpalpable. No jugular Distention no bruits. Lungs reveal diminished air entry bilaterally. Increased expiratory Phase secondary to COPD. Heart exam reveals regular S1-S2 soft S4. Abdominal examination is unremarkable. Extremities show adequate perfusion mild edema bilaterally. Decreased range of motion of the right leg secondary to hip fracture. Neurologically intact. Labs/Diagnostic Data Labs Test 09/07/25 06:23 09/06/25 23:02 Range/Units White Blood Count 8.2 4.4-10.8 10^3/uL Red Blood Count 3.09 L 4.0-5.20 10^6/uL Hemoglobin 9.5 L 12.2-16.2 g/dL Hematocrit 28.2 #L 36.0-46.0 % Mean Corpuscular Volume 91.1 80.0-100.0 fL Mean Corpuscular Hemoglobin 30.6 28.0-32.0 pg Mean Corpuscular Hemoglobin Concent 33.6 32.0-36.0 g/dL Red Cell Distribution Width 16.1 H 11.8-14.3 % Platelet Count 460 H 140-450 10^3/uL Mean Platelet Volume 6.9 6.9-10.8 fL Neutrophils (%) (Auto) 70.4 37.0-80.0 % Lymphocytes (%) (Auto) 15.3 10.0-50.0 % Monocytes (%) (Auto) 11.5 0.0-12.0 % Eosinophils (%) (Auto) 1.9 0.0-7.0 % Basophils (%) (Auto) 0.9 0.0-2.0 % Neutrophils # (Auto) 5.8 1.6-8.6 10 ^3/uL Lymphocytes # (Auto) 1.2 0.4-5.4 10 ^3/uL Monocytes # (Auto) 0.9 0-1.3 10 ^3/uL Eosinophils # (Auto) 0.2 0-0.8 10 ^3/uL Basophils # (Auto) 0.1 0-0.2 10 ^3/uL Nucleated Red Blood Cells 0.0 % Prothrombin Time 10.2 9.3-11.8 sec Prothrombin Time INR 0.96 0.9-1.15 Sodium Level 134 L 136-145 mmol/L Potassium Level 4.3 3.5-5.1 mmol/L Chloride Level 96 L 98-107 mmol/L Carbon Dioxide Level 28 20-31 mmol/L Anion Gap 10 5-15 Blood Urea Nitrogen 5 L 9-23 mg/dL Creatinine 0.60 0.550-1.02 mg/dL Glomerular Filtration Rate Calc 105 >90 mL/min BUN/Creatinine Ratio 8.3 L 10.0-20.0 Serum Glucose 121 H 74-106 mg/dL Calcium Level 8.6 L 8.7-10.4 mg/dL Total Bilirubin 0.5 0.2-1.0 mg/dL Aspartate Amino Transferase (AST) 21 13-40 U/L Alanine Aminotransferase (ALT) 11 7-40 U/L Alkaline Phosphatase 81 46-116 U/L Total Protein 5.5 L 5.7-8.2 g/dL Albumin 3.1 L 3.2-4.8 g/dL Troponin I High Sensitivity 4 </=34 ng/L B-Type Natriuretic Peptide 35.20 0-100 pg/mL EKG shows a sinus rhythm with nonspecific T-wave changes. Echocardiographic evaluation shows normal left ventricular function. EF gradient 60%. Assessment History of significant COPD secondary to smoking. Status post hip fracture. Patient is a low to moderate risk given her history of COPD. No cardiac history of congestive heart failure or angina and/or chest pain. Plan/Recommendation Given her asymptomatic nature patient is cleared to undergo hip surgery. Normal ejection fraction verified. Plan discussed with: Patient NYHA Physical activity limitations: Class1(None)absent sob, Date of Service: Sep 07, 2025 Billing Provider: DEYSI FINLEY Sr., MD Cardiology Common Codes: [id number] INP/OBS CARE (High) DEYSI FINLEY Sr., MD Sep 07, 2025 18:30
[2025-09-07 20:00] VITALS: PULSE 91
[2025-09-07 21:00] VITALS: BP 112/66; PULSE 82; RESP 18; TEMP 97.6; O2SAT 97
[2025-09-07 23:58] LABS: Urine Protein, UAD TRACE (Negative)
[2025-09-08] VITALS (17 sets, daily range): BP systolic 91–134; BP diastolic 71–77; PULSE 87–134; RESP 16–21; TEMP 97.6–98; O2SAT 90–100
[2025-09-08 06:55] LABS: Hemoglobin 9.2 g/dL (12.2-16.2); Nucleated Red Blood Cells % 0.0 %
[2025-09-08 06:57] LABS: Hematocrit 28.4 % (36.0-46.0); Mean Corpuscular Hemoglobin 29.8 pg (28.0-32.0); Mean Corpuscular Volume 92.4 fL (80.0-100.0)
[2025-09-08 06:59] LABS: Alanine Aminotransferase 10 U/L (7-40); Alkaline Phosphatase 74 U/L (46-116); Anion Gap 6 (5-15); BUN/Creatinine Ratio 11.3 (10.0-20.0); Chloride 101 mmol/L (98-107); Glucose 96 mg/dL (74-106); Potassium 4.2 mmol/L (3.5-5.1); Sodium 139 mmol/L (136-145)
[2025-09-08 07:00] LABS: Bilirubin, Total 0.3 mg/dL (0.2-1.0)
[2025-09-08 07:01] LABS: Albumin 3.0 g/dL (3.2-4.8); Blood Urea Nitrogen 7 mg/dL (9-23); Calcium 8.5 mg/dL (8.7-10.4); Carbon Dioxide 32 mmol/L (20-31); Total Protein 5.3 g/dL (5.7-8.2)
[2025-09-08] MEDS: FOLIC ACID 1 MG in D5W 5% 50 ML INJ ONE (08:30)
[2025-09-08] MEDS: THIAMINE 100mg/ml INJ (200mg/2ml VIAL) IV ONE (08:30)
--- NOTE | 2025-09-08 08:33 | DVHPN2 ---
Subjective Doing well She is having tremors and anxiety Changes from previous H/P or p: Changes Eyes: No Pain, No Vision change, No Conjunctivae inflammation, No Eyelid inflammation, No Other, No Redness ENT: No Ear pain, No Ear discharge, No Nose pain, No Nose discharge, No Nose congestion, No Mouth pain, No Mouth swelling, No Throat pain, No Throat swelling, No Other Cardiovascular: No Chest Pain, No Palpitations, No Orthopnea, No Paroxysmal Noc. Dyspnea, No Edema, No Lt Headedness, No Other Respiratory: No Cough, No Dry, No Shortness of breath, No SOB with excertion, No Wheezing, No Hemoptysis, No Pleuritic Pain, No Sputum, No Other Gastrointestinal: No Nausea, No Vomiting, No Abdominal Pain, No Diarrhea, No Constipation, No Melena, No Hematochezia, No Other Genitourinary: No Dysuria, No Frequency, No Incontinence, No Hematuria, No Retention, No Other Musculoskeletal: other (Right hip pain); No neck pain, No shoulder pain, No arm pain, No back pain, No hand pain, No leg pain, No foot pain Skin: No Rash, No Lesions, No Jaundice, No Bruising, No Other Objective Vitals Vital Signs Date Time Temp Pulse Resp B/P (MAP) Pulse Ox O2 Delivery O2 Flow Rate FiO2 09/08/25 06:43 87 19 116/77 09/08/25 05:00 97.6 98 97.6 09/07/25 20:00 Nasal Cannula* 2 28 Intake/Output Intake and Output 09/08/25 07:00 Intake Total 100 ml Output Total 550 ml Balance -450 ml Intake Oral 100 ml Output Urine Total 550 ml General Appearance: Alert, Oriented X3, Cooperative, No acute distress Lungs: Clear to auscultation, Normal air movement Cardiovascular: Regular rate, Normal S1, Normal S2, No murmurs Abdomen: Normal bowel sounds, Soft, No tenderness Extremities: Other (1+ edema bilaterally in the lower extremities) Medications Current Medications Medications Dose Ordered Sig/Cheryl Route Start Time Stop Time Status Last Admin Dose Admin Acetaminophen/ Hydrocodone Bitart 1 tab Q4HP PRN PO 09/07/25 05:15 09/07/25 15:42 1 TAB Ondansetron HCl 4 mg Q4HP PRN IV 09/07/25 05:15 Docusate Sodium 100 mg BIDPRN PRN PO 09/07/25 05:15 Enoxaparin Sodium 40 mg DAILY SC 09/07/25 10:00 09/07/25 10:33 40 MG Acetaminophen 650 mg Q6HP PRN PO 09/07/25 05:15 Morphine Sulfate 2 mg Q4HPRN PRN IV 09/07/25 05:15 09/08/25 06:43 2 MG Nitroglycerin 0.4 mg Q5MINP PRN SL 09/07/25 05:15 Morphine Sulfate 2 mg Q30M PRN IV 09/07/25 05:15 Nicotine 1 patch DAILY TD 09/08/25 10:00 Lorazepam 0.5 mg Q6HP PRN IV 09/07/25 13:15 09/08/25 01:04 0.5 MG Laboratory Results Laboratory Tests 09/08/25 06:33 Chemistry Test 09/08/25 06:33 Albumin 3.0 g/dL (3.2-4.8) L Calcium Level 8.5 mg/dL (8.7-10.4) L Total Protein 5.3 g/dL (5.7-8.2) L LFT Test 09/08/25 06:33 Alanine Aminotransferase (ALT) 10 U/L (7-40) Alkaline Phosphatase 74 U/L (46-116) Aspartate Amino Transferase (AST) 13 U/L (13-40) Total Bilirubin 0.3 mg/dL (0.2-1.0) Urinalysis Test 09/07/25 23:17 09/07/25 23:21 Urine Color Yellow (Yellow) Urine Clarity Clear (Clear) Urine pH 6.0 (5.0-9.0) Urine Specific [place] 1.021 (1.001-1.035) Urine Protein Trace (Negative) H Urine Ketones Negative (Negative) Urine Blood 2+ /uL (Negative) H Urine Nitrite Negative (Negative) Urine Bilirubin Negative (Negative) Urine Urobilinogen Normal mg/dL (Negative) Urine Leukocyte Esterase 1+ /uL (Negative) Urine RBC 232 /hpf (0 - 4) Urine Microscopic WBC 26 /HPF (0-5) H Urine Squamous Epithelial Cells Few /hpf (<5) Urine Bacteria None seen /hpf (None Seen) Urine Hyaline Casts Few /lpf (0 - 2) Urine Mucus Few (None Seen) Urine Glucose Normal mg/dL (Normal) Urine Test Negative (Negative) Assessment/Plan Assessment/Plan Right intertrochanteric femur fracture Alcoholism Tobacco smoking Hypertension COPD Anxiety Plan Orthopedic consult Nicotine patch Ativan p.r.n. Librium Pain control as needed Tom catheter Lovenox Full code Advance directives discussed for 20 minutes 09/08/2025: Alcohol withdrawal: Continue Ativan p.r.n., give thiamine and multivitamins and folic acid Right intertrochanteric femur fracture: Surgery for today Pain management as needed with morphine Oxygen as needed Monitor closely Plan discussed with: Patient, Spouse My Orders Orders - SG LUTHER MD Procedure Category Date Status Time Insert Tom Catheter JOSTIN 09/07/25 In Process 13:05 Nicotine 21mg/24hr PHA 09/07/25 In Process (Nicoderm 21mg/24hr) 13:15 Nicotine 21mg/24hr PHA 09/08/25 In Process (Nicoderm 21mg/24hr) 10:00 Lorazepam 2mg/Ml Inj PHA 09/07/25 In Process (Ativan Inj) 13:15 Date of Service: Sep 08, 2025 Billing Provider: SG LUTHER MD Common Visit Codes: [id number] INP/OBS CARE(HIGH) SG LUTHER MD Sep 08, 2025 08:33
[2025-09-08] MEDS: NICOTINE 21MG/24 HR TOPICAL PATCH TD SCH (09:34)
[2025-09-08] MEDS ORDERED: BUPIVACAINE/DEXTROSE MPF 0.75% 2 ML AMP IT ONE (12:07)
[2025-09-08] MEDS ORDERED: KETOROLAC TROMETH 30 MG/ML 1ML VIAL ONE (12:07)
[2025-09-08] MEDS ORDERED: LIDOCAINE 1% INJ PF 5ML AMP ONE (12:07)
[2025-09-08] MEDS ORDERED: PROPOFOL 10 MG/ML 20 ML IV ONE (12:07)
[2025-09-08] MEDS ORDERED: GLYCOPYRROLATE 0.2 MG/ML 1ML VIAL ONE (12:07)
[2025-09-08] MEDS ORDERED: ONDANSETRON HCL 4 MG/2 ML VIAL ONE (12:07)
[2025-09-08] MEDS: CELECOXIB 100 MG CAP PO ONE (13:10)
[2025-09-08] MEDS: ACETAMINOPHEN IV 1000 MG/100ML (10MG/ML) IV ONE (13:10)
[2025-09-08] MEDS: GABAPENTIN 300 MG CAP PO ONE (13:10)
[2025-09-08] MEDS: ALBUTEROL SULF 2.5 MG/0.5ML(0.5%) NEB SOLN NEB ONE (13:24)
[2025-09-08] MEDS: IPRATROPIUM BROM 0.5 MG/2.5ML INH SOL NEB ONE (13:24)
--- NOTE | 2025-09-08 13:29 | DVHPN2 ---
Progress Note Date Seen: Sep 08, 2025 Medical Necessity Reason Pt with a Central, PICC or Fol: No Subjective Patient reports: No new complaints (ready to proceed with surgery) Objective vital signs Vital Sign Date Time Temp Pulse Resp B/P (MAP) Pulse Ox O2 Delivery O2 Flow Rate FiO2 09/08/25 11:43 92 18 125/72 09/08/25 09:00 98.0 97 98.0 09/08/25 08:00 Nasal Cannula* 3 32 Total Intake and Output 09/07/25 09/07/25 09/08/25 15:00 23:00 07:00 Intake Total 100 ml 0 ml Output Total 550 ml Balance 100 ml -550 ml medications Current Medications Medications Dose Ordered Sig/Cheryl Route Start Time Stop Time Status Last Admin Dose Admin Acetaminophen/ Hydrocodone Bitart 1 tab Q4HP PRN PO 09/07/25 05:15 09/07/25 15:42 1 TAB Ondansetron HCl 4 mg Q4HP PRN IV 09/07/25 05:15 Docusate Sodium 100 mg BIDPRN PRN PO 09/07/25 05:15 Enoxaparin Sodium 40 mg DAILY SC 09/07/25 10:00 09/07/25 10:33 40 MG Acetaminophen 650 mg Q6HP PRN PO 09/07/25 05:15 Morphine Sulfate 2 mg Q4HPRN PRN IV 09/07/25 05:15 09/08/25 11:43 2 MG Nitroglycerin 0.4 mg Q5MINP PRN SL 09/07/25 05:15 Morphine Sulfate 2 mg Q30M PRN IV 09/07/25 05:15 Nicotine 1 patch DAILY TD 09/08/25 10:00 09/08/25 09:34 1 PATCH Lorazepam 0.5 mg Q6HP PRN IV 09/07/25 13:15 09/08/25 08:43 0.5 MG Thiamine HCl 100 mg DAILY PO 09/09/25 10:00 Folic Acid 1 mg DAILY PO 09/09/25 10:00 Examination: GENERAL:Normal, MSK:Abnormal laboratory and microbiology Laboratory Tests 09/08/25 06:33 Test 09/08/25 06:33 Range/Units Serum Glucose 96 74-106 mg/dL Problem List/Assessment/Plan Problem List/Assessment/Plan 55 yo F with comminuted right hip intertrochanter fracture - over 2 weeks old 1. I had a long discussion with the patient regarding her condition. Questions for patient answered. Risks benefits options and alternatives reviewed in depth. RIsks include but not exclusive to bleeding infection nerve injury hardware failure nonunion malunion chronic pain blood clots cardiac and pulmonary complications amputation and . Patient understands the morbidity and mortality of hip fractures in the elderly. She wishes to proceed with surgery 2. Plan for open reduction internal fixation of right hip fracture 3. npo/ivf 4. pain control 5. Patient ate food yesterday 1 hour prior to surgery so surgery scheduled for 09/08/25 instead Plan discussed with: Patient My Orders My Orders Orders - JAYLAN NEWBERRY MD Procedure Category Date Status Time Cardiac DIET 09/07/25 Transmitted Diet-2gna,Lofat,Lochol Dinner Chest Portable XY 09/07/25 Resulted 14:49 * Cardiology Consult CONS 09/07/25 Transmitted 14:49 Electrocardigram EKG 09/08/25 Logged 05:42 JAYLAN NEWBERRY MD Sep 08, 2025 13:29
[2025-09-08] MEDS: ceFAZolin 2 GM/D5W50ml 50 ML IV ONE (13:30)
[2025-09-08] MEDS ORDERED: KETAMINE 50mg/ML 10ml Vial 10 ML ONE (13:31)
--- NOTE | 2025-09-08 13:41 | DVHOP2 ---
Operative Report - 2 Report Details Date: 09/08/25 Preop Diagnosis: Right hip intertrochanter frature malunion (over 2 week old fracture) Postop Diagnosis: as above Surgeon: Poli Russell MD Anesthesiologist: Daren HERNÁNDEZ Anesthesia: Regional Implant: ITS 125 x10 mm nail lag screw/set screw distal locking screw Consent: The patient was informed of the risks and benefits of the procedure. These include but are not limited to complications of anesthesia, postoperative infection, incomplete relief of symptoms, recurrence of symptoms, damage to blood vessels, nerves and tendons, deep venous thrombosis, pulmonary embolism and possible need for repeat surgery in the future. Estimated Blood Loss: 100 cc Indications for Surgery: 55 yo F who fell over 2 weeks ago with a displaced and comminuted right hip intertrochanter fracture Name of Procedure Performed 1. Open reduction internal fixation of right hip intertrochanter fracture 2. Right hip fracture malunion takedown of callus 3. intra-operative fluoroscopy Procedure Details Procedure Details: Patient was identified in the preoperative holding area and the surgical site was marked. The consent was verified. She was brought into the operating room and placed supine on the operating table. General anesthesia was administered. Intravenous antibiotics were given. The extremity was prepped and draped in the usual sterile manner. A timeout was called out to confirm the identity of the patient, the nature of surgery, the site of surgery, the availability of implants and x-rays and allergies to medications. The patient was placed on the hip fracture distraction system. Other extremity was placed on support in abduction and flexion. The C-arm was brought in and gentle traction was applied, some abduction, internal rotation and adduction was then applied. This maneuver was repeated once for better reduction. . An incision was made 2 cm proximal to the greater trochanter. The IT band was incised. The greater trochanter was palpated and a guidepin was inserted. AP and lateral views were obtained to confirm the trajectory. Next a proximal gina kal was inserted to open up the canal. Patient noted to have significant callus at fracture site which prevented lengthening at the fracture. Utilizing ronjeur and osteotomes fracture site was taken down. Next based on intraoperative measurements, a 10 mm proximal nail was inserted from the greater trochanter into the shaft. Good reduction was noted. AP and lateral views were obtained to confirm the trajectory of the nail. Next, the cephalic guidewire was inserted to hold the reduction. This was in acceptable position. Next the screw was inserted based on measurements. 85 mm screw was inserted. Then the set screw just distal to the cephalic screw was inserted in compression was achieved using the proprietary system. Excellent reduction was noted both in the AP and lateral views. A distal bicortical locking screw was now inserted. Excellent fixation was noted. Irrigation was given. The iliotibial band was closed with #2 Ethibond in the proximal incision. All the skin incisions were closed with 2-0 Vicryl and then farheen were used. Sterile dressing was applied. Local anesthetic was injected. Traction was released in both legs and the patient was moved to the stretcher. Specimen: Condition Good Disposition Still a Patient POLI RUSSELL MD Sep 08, 2025 13:41
[2025-09-08] MEDS ORDERED: SODIUM CHLORIDE LOCK 10 ML ONE (13:53)
[2025-09-08] MEDS ORDERED: PHENYLEPHRINE HCL 10 MG/ML VL ONE (13:53)
[2025-09-08] MEDS: BUPIVACAINE W/ EPINEPH 0.25% INJ 50ML MDV ONE (14:16)
[2025-09-08] MEDS ORDERED: fentaNYL CITRATE 100 MCG/2 ML VL IV PRN (14:45)
[2025-09-08] MEDS ORDERED: hydrALAZINE HCL 20 MG/ML VL IV PRN (14:45)
[2025-09-08] MEDS ORDERED: NALOXONE HCL 0.4 MG/ML VIAL IV PRN (14:45)
[2025-09-08] MEDS ORDERED: ONDANSETRON HCL 4 MG/2 ML VIAL IV PRN (14:45)
[2025-09-08] MEDS ORDERED: FLUMAZENIL 0.1 MG/ML INJ 10ML MDV IV PRN (14:45)
[2025-09-08] MEDS ORDERED: HYDROmorphone HCL 2 MG/ML VL/or syr IV PRN (14:45)
--- NOTE | 2025-09-08 14:45 | DVH ---
C-ARM FLUOROSCOPY: PROCEDURE: Right hip ORIF FLUOROSCOPY TIME: 49.9 seconds Air Kerma: 4.42 mgy FINDINGS: Spot intraoperative C arm radiographs demonstrating right hip ORIF. IMPRESSION: Please refer to surgical report for detailed findings.
[2025-09-08] MEDS: BUPIVACAINE 0.25% INJ 50ML VIAL ONE (14:48)
[2025-09-08] MEDS: BUPIVACAINE HCL 50 ML ONE (14:48)
[2025-09-08] MEDS: ALBUTEROL SULF 2.5 MG/0.5ML(0.5%) NEB SOLN NEB PRN (16:28)
[2025-09-08] MEDS: IPRATROPIUM BROM 0.5 MG/2.5ML INH SOL NEB PRN (16:28)
[2025-09-08] MEDS: ceFAZolin 1GM/50ML 50 ML IV SCH (17:24)
[2025-09-09] VITALS (12 sets, daily range): BP systolic 112–147; BP diastolic 68–79; PULSE 92–148; RESP 18–20; TEMP 97.3–98.8; O2SAT 90–100
[2025-09-09 07:23] LABS: Hemoglobin 8.9 g/dL (12.2-16.2); Nucleated Red Blood Cells % 0.0 %
[2025-09-09 07:25] LABS: Hematocrit 27.4 % (36.0-46.0); Mean Corpuscular Hemoglobin 29.6 pg (28.0-32.0); Mean Corpuscular Volume 91.8 fL (80.0-100.0)
[2025-09-09 07:42] LABS: Alanine Aminotransferase 10 U/L (7-40); Alkaline Phosphatase 80 U/L (46-116); Anion Gap 4 (5-15); BUN/Creatinine Ratio 15.0 (10.0-20.0); Blood Urea Nitrogen 12 mg/dL (9-23); Calcium 9.1 mg/dL (8.7-10.4); Chloride 100 mmol/L (98-107); Magnesium 1.9 mg/dL (1.6-2.6); Potassium 4.5 mmol/L (3.5-5.1); Sodium 137 mmol/L (136-145)
[2025-09-09 07:43] LABS: Albumin 3.2 g/dL (3.2-4.8); Bilirubin, Total 0.2 mg/dL (0.2-1.0); Carbon Dioxide 33 mmol/L (20-31); Glucose 149 mg/dL (74-106); Total Protein 5.7 g/dL (5.7-8.2)
--- NOTE | 2025-09-09 08:16 | DVHPN2 ---
Progress Note Progress Note ORTHOPEDIC PROGRESS NOTE Patient: Ms. Titus Post-Op Day: 1 Procedure: Right hip cephalomedullary nail fixation (CMN) History: COPD, chronic smoker, alcoholic (10-year history). Two-week history of right intertrochanteric hip fracture prior to surgical fixation. Subjective: Patient seen today for postoperative evaluation. Reports expected postoperative pain, currently managed with medication. No new complaints. Denies numbness or tingling. No CP/SOB/Palpitations, dizziness, numbness/tingling reported. Objective: Incision/Dressing: Dressing intact with no saturation. Neurovascular Exam: Distal motor and sensory function intact. Warm and well- perfused. Pulmonary: Breathing comfortably at rest; known COPD. No acute respiratory distress noted. Musculoskeletal: Right lower extremity aligned, swelling within expected postoperative limits. Therapy Status: Physical therapy not yet initiated. Assessment: Postoperative day 1 status post cephalomedullary nail (CMN) fixation for a [id number] right intertrochanteric hip fracture. Stable postoperative course. Known history of COPD, chronic smoking, and longstanding alcohol use (10 years), all of which may impact rehabilitation and bone healing. Pain reasonably controlled on current regimen. No signs of wound complication; patient is neurovascularly intact. Plan / Recommendations: Continue postoperative care under the hospitalist team. WBAT Maintain multimodal analgesia for pain control per HOSPITALIST. Encourage pulmonary hygiene given COPD and smoking history. Initiate PT evaluation as soon as appropriate. Discharge Planning: If patient meets PT mobility and functional goals , discharge home. If patient does not meet PT goals or demonstrates limited functional progress due to pain, endurance, or comorbidities , recommend [facility] Facility ([facility]NF) for continued rehabilitation. Continue DVT prophylaxis per protocol PER HOSPITALIST. Monitor incision daily; continue fall precautions. Plan discussed with: Patient, Other Visit Coding Surgery Date of Service if different f: Sep 09, 2025 Billing Provider: TIKA JIANG Surgery Visit Codes: [id number] - INP CONSULT <55 MIN TIKA JIANG Sep 09, 2025 08:16
[2025-09-09] MEDS: FOLIC ACID 1 MG TAB PO SCH (08:26)
[2025-09-09] MEDS: ceFAZolin 1GM/50ML 50 ML IV SCH (08:27)
[2025-09-09] MEDS: THIAMINE HCL 100 MG TAB PO SCH (08:27)
--- NOTE | 2025-09-09 09:28 | ECG ---
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
--- NOTE | 2025-09-09 11:37 | DVHPN2 ---
Subjective Postop day 1. Doing well Changes from previous H/P or p: Changes Eyes: No Pain, No Vision change, No Conjunctivae inflammation, No Eyelid inflammation, No Other, No Redness ENT: No Ear pain, No Ear discharge, No Nose pain, No Nose discharge, No Nose congestion, No Mouth pain, No Mouth swelling, No Throat pain, No Throat swelling, No Other Cardiovascular: No Chest Pain, No Palpitations, No Orthopnea, No Paroxysmal Noc. Dyspnea, No Edema, No Lt Headedness, No Other Respiratory: No Cough, No Dry, No Shortness of breath, No SOB with excertion, No Wheezing, No Hemoptysis, No Pleuritic Pain, No Sputum, No Other Gastrointestinal: No Nausea, No Vomiting, No Abdominal Pain, No Diarrhea, No Constipation, No Melena, No Hematochezia, No Other Genitourinary: No Dysuria, No Frequency, No Incontinence, No Hematuria, No Retention, No Other Musculoskeletal: other (Right hip pain); No neck pain, No shoulder pain, No arm pain, No back pain, No hand pain, No leg pain, No foot pain Skin: No Rash, No Lesions, No Jaundice, No Bruising, No Other Objective Vitals Vital Signs Date Time Temp Pulse Resp B/P (MAP) Pulse Ox O2 Delivery O2 Flow Rate FiO2 09/09/25 08:00 92 Nasal Cannula* 3 32 09/09/25 05:00 97.7 92 19 115/70 (85) 97.7 Intake/Output Intake and Output 09/09/25 07:00 Intake Total 1000.2 ml Output Total 1200 ml Balance -199.8 ml Intake Oral 750 ml IV Total 250.2 ml Output Urine Total 1200 ml General Appearance: Alert, Oriented X3, Cooperative, No acute distress Lungs: Clear to auscultation, Normal air movement Cardiovascular: Regular rate, Normal S1, Normal S2, No murmurs Abdomen: Normal bowel sounds, Soft, No tenderness Extremities: Other (1+ edema bilaterally in the lower extremities) Medications Current Medications Medications Dose Ordered Sig/Cheryl Route Start Time Stop Time Status Last Admin Dose Admin Acetaminophen/ Hydrocodone Bitart 1 tab Q4HP PRN PO 09/07/25 05:15 09/09/25 08:28 1 TAB Ondansetron HCl 4 mg Q4HP PRN IV 09/07/25 05:15 Docusate Sodium 100 mg BIDPRN PRN PO 09/07/25 05:15 Enoxaparin Sodium 40 mg DAILY SC 09/07/25 10:00 09/09/25 08:27 40 MG Acetaminophen 650 mg Q6HP PRN PO 09/07/25 05:15 Morphine Sulfate 2 mg Q4HPRN PRN IV 09/07/25 05:15 09/09/25 01:41 2 MG Nitroglycerin 0.4 mg Q5MINP PRN SL 09/07/25 05:15 Morphine Sulfate 2 mg Q30M PRN IV 09/07/25 05:15 Nicotine 1 patch DAILY TD 09/08/25 10:00 09/09/25 08:29 1 PATCH Lorazepam 0.5 mg Q6HP PRN IV 09/07/25 13:15 09/09/25 08:29 0.5 MG Thiamine HCl 100 mg DAILY PO 09/09/25 10:00 09/09/25 08:27 100 MG Folic Acid 1 mg DAILY PO 09/09/25 10:00 09/09/25 08:26 1 MG Oxycodone HCl 10 mg ONCE PRN PO 09/08/25 14:45 09/08/25 17:24 10 MG Albuterol 2.5 mg Q6HPRN PRN NEB 09/08/25 16:30 09/08/25 18:43 2.5 MG Ipratropium [place] 0.5 mg Q6HPRN PRN NEB 09/08/25 16:30 09/08/25 18:43 0.5 MG Laboratory Results Laboratory Tests 09/09/25 06:19 Chemistry Test 09/09/25 06:19 Albumin 3.2 g/dL (3.2-4.8) Calcium Level 9.1 mg/dL (8.7-10.4) Magnesium Level 1.9 mg/dL (1.6-2.6) Total Protein 5.7 g/dL (5.7-8.2) LFT Test 09/09/25 06:19 Alanine Aminotransferase (ALT) 10 U/L (7-40) Alkaline Phosphatase 80 U/L (46-116) Aspartate Amino Transferase (AST) 12 U/L (13-40) L Total Bilirubin 0.2 mg/dL (0.2-1.0) Urinalysis Test 09/07/25 23:17 09/07/25 23:21 Urine Color Yellow (Yellow) Urine Clarity Clear (Clear) Urine pH 6.0 (5.0-9.0) Urine Specific [place] 1.021 (1.001-1.035) Urine Protein Trace (Negative) H Urine Ketones Negative (Negative) Urine Blood 2+ /uL (Negative) H Urine Nitrite Negative (Negative) Urine Bilirubin Negative (Negative) Urine Urobilinogen Normal mg/dL (Negative) Urine Leukocyte Esterase 1+ /uL (Negative) Urine RBC 232 /hpf (0 - 4) Urine Microscopic WBC 26 /HPF (0-5) H Urine Squamous Epithelial Cells Few /hpf (<5) Urine Bacteria None seen /hpf (None Seen) Urine Hyaline Casts Few /lpf (0 - 2) Urine Mucus Few (None Seen) Urine Glucose Normal mg/dL (Normal) Urine Test Negative (Negative) Assessment/Plan Assessment/Plan Right intertrochanteric femur fracture Alcoholism Tobacco smoking Hypertension COPD Anxiety Plan Orthopedic consult Nicotine patch Ativan p.r.n. Librium Pain control as needed Tom catheter Lovenox Full code Advance directives discussed for 20 minutes 09/08/2025: Alcohol withdrawal: Continue Ativan p.r.n., give thiamine and multivitamins and folic acid Right intertrochanteric femur fracture: Surgery for today Pain management as needed with morphine Oxygen as needed Monitor closely 09/09/2025: Continue the current management for pain management Ativan p.r.n. Nicotine patch Physical therapy SNF versus home health once physical therapy is done Discussed with the at the bedside Plan discussed with: Patient, Spouse My Orders Orders - SG LUTHER MD Procedure Category Date Status Time C Arm Fluoroscopy Up XY 09/08/25 Resulted To 60min 14:22 R Hip Complete Xray XY 09/08/25 Resulted 14:23 Albuterol Medneb PHA 09/08/25 In Process (Ventolin Medneb) 16:30 Ipratropium Medneb PHA 09/08/25 In Process (Atrovent Medneb) 16:30 Date of Service: Sep 09, 2025 Billing Provider: SG LUTHER MD Common Visit Codes: [id number] INP/OBS CARE(HIGH) SG LUTHER MD Sep 09, 2025 11:37
--- NOTE | 2025-09-09 15:15 | DVH ---
EXAM: XY CHEST XRAY 1 VIEW Indication: SOB Technique: Single frontal view of the chest was obtained Comparison: XY CHEST PORTABLE on DOS: 09/07/25 FINDINGS: Lines and Tubes: None Lungs: No focal consolidation. Pleura: No effusion. No pneumothorax. Cardiomediastinal contours: Unremarkable Bones: No acute osseous abnormality. IMPRESSION: No acute cardiopulmonary disease.
[2025-09-09] MEDS: LEVALBUTEROL HCL 1.25 MG/3 ML NEB NEB SCH (18:34)
[2025-09-09] MEDS: MORPHINE SULFATE 4 MG/ML SYR/VIAL IV PRN (18:41)
[2025-09-10] VITALS (14 sets, daily range): BP systolic 122–143; BP diastolic 78–88; PULSE 79–116; RESP 17–22; TEMP 98–98.5; O2SAT 91–100
[2025-09-10 06:02] LABS: Hematocrit 25.5 % (36.0-46.0); Hemoglobin 8.4 g/dL (12.2-16.2); Mean Corpuscular Hemoglobin 30.0 pg (28.0-32.0); Mean Corpuscular Volume 91.4 fL (80.0-100.0); Nucleated Red Blood Cells % 0.0 %
[2025-09-10 06:18] LABS: Anion Gap 4 (5-15); Calcium 8.6 mg/dL (8.7-10.4); Carbon Dioxide 33 mmol/L (20-31); Chloride 99 mmol/L (98-107); Potassium 4.2 mmol/L (3.5-5.1); Sodium 136 mmol/L (136-145)
[2025-09-10 06:23] LABS: Glucose 96 mg/dL (74-106)
[2025-09-10 06:24] LABS: BUN/Creatinine Ratio 22.8 (10.0-20.0); Blood Urea Nitrogen 13 mg/dL (9-23)
--- NOTE | 2025-09-10 09:38 | DVHDS2 ---
Discharge Summary Date of Admission Sep 07, 2025 at 05:04 Date of Discharge: Sep 10, 2025 Labs/Diagnostic Data: Laboratory Results Test 09/10/25 05:25 09/09/25 06:19 09/07/25 23:21 09/07/25 23:17 White Blood Count 10.8 10^3/uL (4.4-10.8) Red Blood Count 2.79 10^6/uL (4.0-5.20) Hemoglobin 8.4 g/dL (12.2-16.2) Hematocrit 25.5 % (36.0-46.0) Mean Corpuscular Volume 91.4 fL (80.0-100.0) Mean Corpuscular Hemoglobin 30.0 pg (28.0-32.0) Mean Corpuscular Hemoglobin Concent 32.8 g/dL (32.0-36.0) Red Cell Distribution Width 16.4 % (11.8-14.3) Platelet Count 436 10^3/uL (140-450) Mean Platelet Volume 6.9 fL (6.9-10.8) Neutrophils (%) (Auto) 72.3 % (37.0-80.0) Lymphocytes (%) (Auto) 14.7 % (10.0-50.0) Monocytes (%) (Auto) 11.3 % (0.0-12.0) Eosinophils (%) (Auto) 1.4 % (0.0-7.0) Basophils (%) (Auto) 0.3 % (0.0-2.0) Neutrophils # (Auto) 7.8 10 ^3/uL (1.6-8.6) Lymphocytes # (Auto) 1.6 10 ^3/uL (0.4-5.4) Monocytes # (Auto) 1.2 10 ^3/uL (0-1.3) Eosinophils # (Auto) 0.2 10 ^3/uL (0-0.8) Basophils # (Auto) 0 10 ^3/uL (0-0.2) Nucleated Red Blood Cells 0.0 % Sodium Level 136 mmol/L (136-145) Potassium Level 4.2 mmol/L (3.5-5.1) Chloride Level 99 mmol/L (98-107) Carbon Dioxide Level 33 mmol/L (20-31) Anion Gap 4 (5-15) Blood Urea Nitrogen 13 mg/dL (9-23) Creatinine 0.57 mg/dL (0.550-1.02) Glomerular Filtration Rate Calc 106 mL/min (>90) BUN/Creatinine Ratio 22.8 (10.0-20.0) Serum Glucose 96 mg/dL (74-106) Calcium Level 8.6 mg/dL (8.7-10.4) Magnesium Level 1.9 mg/dL (1.6-2.6) Total Bilirubin 0.2 mg/dL (0.2-1.0) Aspartate Amino Transferase (AST) 12 U/L (13-40) Alanine Aminotransferase (ALT) 10 U/L (7-40) Alkaline Phosphatase 80 U/L (46-116) Total Protein 5.7 g/dL (5.7-8.2) Albumin 3.2 g/dL (3.2-4.8) Urine Test Negative (Negative) Urine Color Yellow (Yellow) Urine Clarity Clear (Clear) Urine pH 6.0 (5.0-9.0) Urine Specific [place] 1.021 (1.001-1.035) Urine Protein Trace (Negative) Urine Ketones Negative (Negative) Urine Blood 2+ /uL (Negative) Urine Nitrite Negative (Negative) Urine Bilirubin Negative (Negative) Urine Urobilinogen Normal mg/dL (Negative) Urine Leukocyte Esterase 1+ /uL (Negative) Urine RBC 232 /hpf (0 - 4) Urine Microscopic WBC 26 /HPF (0-5) Urine Squamous Epithelial Cells Few /hpf (<5) Urine Bacteria None seen /hpf (None Seen) Urine Hyaline Casts Few /lpf (0 - 2) Urine Mucus Few (None Seen) Urine Glucose Normal mg/dL (Normal) Test 09/07/25 06:23 09/06/25 23:02 Prothrombin Time 10.2 sec (9.3-11.8) Prothrombin Time INR 0.96 (0.9-1.15) Troponin I High Sensitivity 4 ng/L (</=34) B-Type Natriuretic Peptide 35.20 pg/mL (0-100) Other Laboratory Tests 09/10/25 05:25 Brief Hx & Hospital Course: Final diagnoses: Right intertrochanteric femur fracture Alcoholism Tobacco smoking Hypertension COPD Anxiety 55-year-old female who was admitted after a fall which resulted in the right femoral fracture. She needed surgery which was then successfully with no complications She is an alcoholic and she uses tobacco daily She was given Ativan for the alcohol withdrawal She was little tachycardic new which improved with IV fluids Multivitamins were given Nicotine patch was given Pain control with oxycodone She is stable now She was seen by Physical therapy and was recommended for SNF Discharge to SNF for rehab Condition at Discharge: Stable Final Diagnosis/Problems List Right intertrochanteric femur fracture status post ORIF Alcoholism Tobacco smoking Hypertension COPD Anxiety [facility]charge [facility]position[facility] Discharge Will this Physician continue t: No Discharge Statement: "Patient was advised to return to the ER or call 911 if any headaches, dizziness, shortness of breath, chest pain, abdominal pain, bleeding, fevers, or worsening of medical condition. Patient was counseled about treatment plan, medications, possible side effects, patientverbalized understanding. All questions were answered to the best of my ability. This discharge took greater then 30 minutes in planning, reviewing documentation, counseling the patient, and discussing with other team members." ASSESSMENT ASSESSMENT Assessment as above Date of Service: Sep 10, 2025 Billing Provider: SG LUTHER MD Common Visit Codes: [id number] DISCH DAY >30min SG LUTHER MD Sep 10, 2025 09:38
[2025-09-10 13:10] LABS: Urine Protein, UAD TRACE (Negative)
[2025-09-11] MEDS ORDERED: HYDR-5139 PO (18:07)
[2025-09-11] MEDS ORDERED: MET50T PO (18:07)
== END 2025-09-10 19:10 | DRG 308 ==
LOC: EDBD 22:20 → ER 22:20 → OVERFLOW 09-07 05:04 → TELE-CENTR 09-07 15:10
PROVIDERS: ADMIT Internal Medicine Geriatric Medicine; ATTEND Internal Medicine Geriatric Medicine
PROC: 0QS604Z Reposition Right Upper Femur with Internal Fixation Device, Open Approach (ICD-10-PCS; principal; 2025-09-08 13:27)
DX: S72.141A Displaced intertrochanteric fracture of right femur, initial encounter for closed fracture (principal); E87.1 Hypo-osmolality and hyponatremia; J44.9 Chronic obstructive pulmonary disease, unspecified; I10 Essential (primary) hypertension; F10.239 Alcohol dependence with withdrawal, unspecified; D75.839 Thrombocytosis, unspecified; F41.9 Anxiety disorder, unspecified; F17.210 Nicotine dependence, cigarettes, uncomplicated; Y90.9 Presence of alcohol in blood, level not specified; W01.0XXA Fall on same level from slipping, tripping and stumbling without subsequent striking against object, initial encounter; Y93.89 Activity, other specified; Y99.8 Other external cause status; Z74.01 Bed confinement status; Z88.0 Allergy status to penicillin; Y92.009 Unspecified place in unspecified non-institutional (private) residence as the place of occurrence of the external cause
CPT/HCPCS: 36415; 71045; 73502; 74176; 76000; 80048; 80053; 81001; 81025; 83735; 83880; 84484; 85025; 85610; 86850; 86900; 86901; 87040; 87086; 87088; 87186; 93005; 93306; 93970; 94640; 97110; 97116; 97163; 97530; G0378; J0131; J0169; J1100; J1885; J2405; J2704; J3490; J7060

== ENCOUNTER 2025-09-11 13:49 | Inpatient (IN) | payer MEDICAID ==
[~2025-09-11] VITALS: Ht 162.6 cm; Wt 56.1 kg
[2025-09-11] VITALS (7 sets, daily range): BP systolic 125–129; BP diastolic 73–80; PULSE 87–108; RESP 18–24; TEMP 97.6; O2SAT 91–99
--- NOTE | 2025-09-11 14:28 | ED.PDOC ---
History of Present Illness HPI Comments 55-year-old female brought by ambulance because she is having increasing swelling of bilateral feet. She was discharged from this hospital yesterday after having a right hip surgery. She did fall three weeks ago but did not come to hospital till Monday. She was diagnosed Monday with a hip fracture for w hich she was taken into surgery few days ago. Patient states that she was not happy at [facility]. She does have a history of COPD. She is on home oxygen. Denies any other symptoms. Chief Complaint: Lower Extremity Time Seen by MD: 14:22 Primary Care Provider: MINGO Reviewed Notes: Nurses Notes, Medications, Allergies Allergies: Coded Allergies: Penicillins (Verified Allergy, Unknown, 10/14/14) Information Source: Patient, Emergency Med Personnel Mode of Arrival: EMS Severity: Moderate Timing: Days Duration: Since onset Past Medical History PAST MEDICAL HISTORY: COPD Surgical History: AGENT SPA DESK History: No Pertinent AGENT SPA DESK History Family History Family History: No family hx of Cancer, Unobtainable Social History Smoker: Cigarettes Alcohol: Occasionally Drugs: Denies Drug Use Lives In: Home Constitutional: denies: chills, diaphoresis, fatigue, fever, malaise, sweats, weakness, others EENTM: denies: blurred vision, double vision, ear bleeding, ear discharge, ear drainage, ear pain, ear ringing, eye pain, eye redness, hearing loss, mouth pain, mouth swelling, nasal discharge, nose bleeding, nose congestion, nose pain, photophobia, tearing, throat pain, throat swelling, voice changes, others Respiratory: denies: cough, hemoptysis, orthopnea, SOB at rest, shortness of breath, SOB with excertion, stridor, wheezing, others Cardiovascular: denies: chest pain, dizzy spells, diaphoresis, Dyspnea on exertion, edema, irregular heart beat, left arm pain, lightheadedness, palpitations, PND, syncope, others Gastrointestinal: denies: abdomen distended, abdominal pain, blood streaked bowels, constipated, diarrhea, dysphagia, difficulty swallowing, hematemesis, melena, nausea, poor appetite, poor fluid intake, rectal bleeding, rectal pain, vomiting, others Genitourinary: denies: abnormal vagina bleeding, burning, dyspareunia, dysuria, flank pain, frequency, hematuria, incontinence, pain, , vagina discharge, urgency, others Neurological: denies: dizziness, fainting, headache, left sided numbness, left sided weakness, numbness, paresthesia, pre-existing deficit, right sided numbness, right sided weakness, seizure, speech problems, tingling, tremors, weakness, others Musculoskeletal: reports: joint swelling (Bilateral feet); denies: back pain, gout, joint pain, muscle pain, muscle stiffness, neck pain, others Integumetry: denies: bruises, change in color, change in hair/nails, dryness, laceration, lesions, lumps, rash, wounds, others Allergic/Immunocompromised: denies: Difficulty Healing, Frequent Infections, Hives, Itching, others Hematologic/Lymphatic: denies: anemia, blood clots, easy bleeding, easy bruising, swollen glands, others Endocrine: denies: excessive hunger, excessive sweating, excessive thirst, excessive urination, flushing, intolerance to cold, intolerance to heat, unexplained weight gain, unexplained weight loss, others Psychiatric: denies: anxiety, bipolar disorder, depression, hopeless, panic disorder, schizophrenia, sleepless, suicidal, others Physical Exam General Appearance: Moderate Distress HEENT: Normal ENT Inspection, Pharynx Normal, TMs Normal Neck: Full Range of Motion, Non-Tender, Normal, Normal Inspection Respiratory: Chest Non-Tender, No Accessory Muscle Use, Other (Coarse breath sounds) Cardiovascular: No Edema, No JVD, No Murmur, No Gallop, Normal Peripheral Pulses, Tachycardia Breast Exam: Deferred Gastrointestinal: No Organomegaly, Non Tender, No Pulsatile Mass, Normal Bowel Sounds, Soft Genitalia: Deferred Pelvic: Deferred Rectal: Deferred Extremities: No calf tenderness, Swelling (Bilateral feet) Musculoskeletal : Apperance: Normal Neurologic: Alert Cerebellar Function: NOT DONE Reflexes: NOT DONE Skin: Normal Color Peripheral Pulses: 3+ Radial (R), 3+ Radial (L) Lymphatic: No Adenopathy Was a procedure done? Was a procedure done?: No Differential Dx Considerations may include: COPD Electrolyte imbalance X-Ray, Labs, Meds, VS Vital Signs Date Time Temp Pulse Resp B/P (MAP) Pulse Ox O2 Delivery O2 Flow Rate FiO2 09/11/25 14:11 97.8 99 17 135/88 (104) 98 97.8 09/11/25 13:51 98.8 99 24 133/85 98 98.8 Patient alert pain Complaining of bilateral feet swelling. Vitals stable. Answering questions. Was given Lasix. Reviewed her previous visit. She was discharged hours ago from this hospital. Explained to the patient. Continue monitoring. Time of 1ST Reevaluation: 14:26 Reevaluation 1ST: Unchanged Patient Education/Counseling: Diagnosis, Treatment, Prognosis Family Education/Counseling: No Family Present SEPSIS Sepsis Screen Date sepsis recognized/suspect: Sep 11, 2025 Time Sepsis recognized/suspect: 135 Recent Procedure: No On Antibiotic Therapy: No Respiratory Rate >20: Yes Heart Rate >90: Yes Temp<36 C (96.8 F) or >38.3 C: No SBP <90 or MAP <65 mmHG: No New Acute Mental Status Change: No Is the patient on CPAP, BIPAP,: No Physician Orders Lactic Acid W/ Reflex Order (09/11/25 13:51) Blood Culture (09/11/25 13:51) Complete Blood Count (09/11/25 13:51) Urinalysis (09/11/25 13:51) Comprehensive Metabolic Panel (09/11/25 13:51) Vital Signs Date Time Temp Pulse Resp B/P (MAP) Pulse Ox O2 Delivery O2 Flow Rate FiO2 09/11/25 14:11 97.8 99 17 135/88 (104) 98 97.8 09/11/25 13:51 98.8 99 24 133/85 98 98.8 Departure 1 Departure Time of Disposition: 14: Impression: Primary Impression: COPD exacerbation Disposition: ADMITTED INPATIENT Admit to: Med Surg Condition: Guarded Critical Care Note Critical Care Time?: Yes (90 min-critical care time only) Stability Stability form required: No Heart Score Heart Score: Heart Score Response (Comments) Value History N/A 0 EKG N/A 0 Age N/A 0 Risk Factors N/A 0 Troponin N/A 0 Total 0 KIALA YUSUF MD Sep 11, 2025 14:27
[2025-09-11 14:50] LABS: Hemoglobin 8.3 g/dL (12.2-16.2); Nucleated Red Blood Cells % 0.0 %
[2025-09-11 14:52] LABS: Hematocrit 25.1 % (36.0-46.0); Mean Corpuscular Hemoglobin 30.0 pg (28.0-32.0); Mean Corpuscular Volume 90.7 fL (80.0-100.0)
--- NOTE | 2025-09-11 14:56 | DVH ---
CHEST RADIOGRAPH REASON FOR EXAM: sob COMPARISON: XY CHEST XRAY 1 VIEW on DOS: 09/09/25, XY CHEST PORTABLE on DOS: 09/07/25 TECHNIQUE: One view of the chest is provided FINDINGS: The cardiomediastinal silhouette is within normal limits for technique. There is no focal airspace disease. There is diffusely increased interstitial prominence suggestive of mild edema. There is no significant pleural effusion. No acute bony abnormality is identified. IMPRESSION: Diffusely increased interstitial prominence suggestive of mild pulmonary edema.
[2025-09-11 15:05] LABS: Alanine Aminotransferase 12 U/L (7-40); Albumin 3.3 g/dL (3.2-4.8); Alkaline Phosphatase 68 U/L (46-116); Anion Gap 7 (5-15); BUN/Creatinine Ratio 16.9 (10.0-20.0); Blood Urea Nitrogen 10 mg/dL (9-23); Calcium 9.1 mg/dL (8.7-10.4); Chloride 100 mmol/L (98-107); Glucose 98 mg/dL (74-106); Potassium 3.9 mmol/L (3.5-5.1); Sodium 140 mmol/L (136-145); Total Protein 5.7 g/dL (5.7-8.2)
[2025-09-11 15:06] LABS: Bilirubin, Total 0.3 mg/dL (0.2-1.0); Carbon Dioxide 33 mmol/L (20-31)
[2025-09-11] MEDS: methylPREDNISolone SOD SUCC 125 MG/2 ML VL IV ONE (15:16)
[2025-09-11 15:30] LABS: Urine Protein, UAD Negative (Negative)
[2025-09-11] MEDS: HYDROcodone-ACET 10/325MG TAB PO ONE (16:23)
--- NOTE | 2025-09-11 16:35 | DVHHP2 ---
History of Present Illness Reason for Visit: Bilateral lower extremity swelling History of Present Illness Esperanza Titus is a 55-year-old female with past medical history of anxiety, COPD, hypertension, and who presents to the ED with increasing swelling of her bilateral feet. She reports that she was discharged yesterday from this hospital after having hip surgery status post fall 3 weeks ago but did not come into the hospital until Monday. She was diagnosed with a hip fracture on Monday and had an ORIF right hip on 09/08/2025. Patient reports that she was discharged to [facility], reports that they did not do anything with her except for placed a diaper on her. Patient reports that she can stand with holding onto a bar against the side of the wall. She reports that she did not get physical therapy while there. Upon evaluation patient has been coughing nonstop and on 4 L nasal cannula. Patient reports that she does not use oxygen at home. Patient also reports bilateral lower extremity tingling on both left and right feet. She reports that the tingling started last night. Patient also reports that she has right ankle pain and thinks that she fractured it. She denies any recent trauma or pain that happened in the last couple of days. She also reports that [facility] there are sick patients with COVID. Patient also reports that [facility] did not change her Tom bag. She denies any recent ingestion of spoiled food, recent travels, chest pain, fever, chills, lightheadedness, weakness, dizziness, abdominal pain, nausea, vomiting, diarrhea, or urinary symptoms. Patient reports that she smokes 1 pack of cigarettes per day, drinks 8-12 cans of beer per day, and does not use any drugs. Cardiovascular: HTN Pulmonary: COPD Psych: Anxiety Past Surgical History: , Other (Right hip ORIF on 09/08/2025) Family History: Cancer, Other (Mom with bone cancer and dad with COPD.) Smoke: 1 pack per day ALCOHOL: heavy Drugs: None Lives: Residential Domestic Violence: Neg Review of Systems Respiratory: Cough, Shortness of breath Cardiovascular: Edema Allergies: Coded Allergies: Penicillins (Verified Allergy, Unknown, 10/14/14) Exam Vital Signs Vital Signs Date Time Temp Pulse Resp B/P (MAP) Pulse Ox O2 Delivery O2 Flow Rate FiO2 09/11/25 14:27 98 Nasal Cannula* 4 36 09/11/25 14:19 108 18 09/11/25 14:11 97.8 135/88 (104) 97.8 General Appearance: Alert, Oriented X3, Cooperative, mild distress HEENT: Atraumatic, PERRLA, EOMI Respiratory: Normal air movement Cardiovascular: Normal S1, Normal S2 Abdominal: Normal bowel sounds, Soft, No tenderness Extremities: No cyanosis Neuro: Normal speech, Normal tone, Sensation intact Psych/Mental Status: Mental status NL, Mood NL Labs/Xrays Labs Test 09/11/25 15:09 09/11/25 14:34 Range/Units Urine Color Colorless Yellow Urine Clarity Turbid H Clear Urine pH 7.5 5.0-9.0 Urine Specific [place] 1.009 1.001-1.035 Urine Protein Negative Negative Urine Ketones Negative Negative Urine Blood Negative Negative /uL Urine Nitrite 2+ H Negative Urine Bilirubin Negative Negative Urine Urobilinogen Normal Negative mg/dL Urine Leukocyte Esterase 3+ Negative /uL Urine RBC 1 0 - 4 /hpf Urine Microscopic WBC 21 H 0-5 /HPF Urine Squamous Epithelial Cells Few <5 /hpf Urine Bacteria None seen None Seen /hpf Urine Glucose Normal Normal mg/dL White Blood Count 7.3 # 4.4-10.8 10^3/uL Red Blood Count 2.77 L 4.0-5.20 10^6/uL Hemoglobin 8.3 L 12.2-16.2 g/dL Hematocrit 25.1 L 36.0-46.0 % Mean Corpuscular Volume 90.7 80.0-100.0 fL Mean Corpuscular Hemoglobin 30.0 28.0-32.0 pg Mean Corpuscular Hemoglobin Concent 33.1 32.0-36.0 g/dL Red Cell Distribution Width 16.2 H 11.8-14.3 % Platelet Count 439 140-450 10^3/uL Mean Platelet Volume 6.8 L 6.9-10.8 fL Neutrophils (%) (Auto) 70.4 37.0-80.0 % Lymphocytes (%) (Auto) 12.6 10.0-50.0 % Monocytes (%) (Auto) 12.6 H 0.0-12.0 % Eosinophils (%) (Auto) 4.1 0.0-7.0 % Basophils (%) (Auto) 0.3 0.0-2.0 % Neutrophils # (Auto) 5.1 1.6-8.6 10 ^3/uL Lymphocytes # (Auto) 0.9 0.4-5.4 10 ^3/uL Monocytes # (Auto) 0.9 0-1.3 10 ^3/uL Eosinophils # (Auto) 0.3 0-0.8 10 ^3/uL Basophils # (Auto) 0 0-0.2 10 ^3/uL Nucleated Red Blood Cells 0.0 % Sodium Level 140 136-145 mmol/L Potassium Level 3.9 3.5-5.1 mmol/L Chloride Level 100 98-107 mmol/L Carbon Dioxide Level 33 H 20-31 mmol/L Anion Gap 7 5-15 Blood Urea Nitrogen 10 9-23 mg/dL Creatinine 0.59 0.550-1.02 mg/dL Glomerular Filtration Rate Calc 105 >90 mL/min BUN/Creatinine Ratio 16.9 10.0-20.0 Serum Glucose 98 74-106 mg/dL Lactic Acid Level 0.8 0.4-2.0 mmol/L Calcium Level 9.1 8.7-10.4 mg/dL Total Bilirubin 0.3 0.2-1.0 mg/dL Aspartate Amino Transferase (AST) 11 L 13-40 U/L Alanine Aminotransferase (ALT) 12 7-40 U/L Alkaline Phosphatase 68 46-116 U/L Total Protein 5.7 5.7-8.2 g/dL Albumin 3.3 3.2-4.8 g/dL CHEST RADIOGRAPH REASON FOR EXAM: sob COMPARISON: XY CHEST XRAY 1 VIEW on DOS: 09/09/25, XY CHEST PORTABLE on DOS: 09/07/25 TECHNIQUE: One view of the chest is provided FINDINGS: The cardiomediastinal silhouette is within normal limits for technique. There is no focal airspace disease. There is diffusely increased interstitial prominence suggestive of mild edema. There is no significant pleural effusion. No acute bony abnormality is identified. IMPRESSION: Diffusely increased interstitial prominence suggestive of mild pulmonary edema. SEPSIS Sepsis Screen Date sepsis recognized/suspect: Sep 11, 2025 Time Sepsis recognized/suspect: 6 Recent Procedure: No On Antibiotic Therapy: No Respiratory Rate >20: No Heart Rate >90: No Temp<36 C (96.8 F) or >38.3 C: No SBP <90 or MAP <65 mmHG: No New Acute Mental Status Change: No Is the patient on CPAP, BIPAP,: No Physician Orders Blood Culture (09/11/25 13:51) Chest Portable (09/11/25 14:28) Urine Bacterial Culture (09/11/25 15:07) Ok To Send Pt Home With Tom (09/11/25 15:11) Tom Catheters (09/11/25 ) Vital Signs Date Time Temp Pulse Resp B/P (MAP) Pulse Ox O2 Delivery O2 Flow Rate FiO2 09/11/25 14:27 98 Nasal Cannula* 4 36 09/11/25 14:19 108 18 99 Nasal Cannula* 4 36 09/11/25 14:11 97.8 99 17 135/88 (104) 98 97.8 09/11/25 13:51 98.8 99 24 133/85 98 98.8 Laboratory Tests Test 09/11/25 14:34 Lactic Acid Level 0.8 mmol/L (0.4-2.0) White Blood Count 7.3 10^3/uL (4.4-10.8) # Medications Medications Dose Ordered Sig/Cheryl Route Start Time Stop Time Status Last Admin Dose Admin Methylprednisolone Sodium Succinate 125 mg ONCE ONCE IV 09/11/25 14:30 09/11/25 14:31 DC 09/11/25 15:16 125 MG Assessment/Plan Assessment/Plan Assessment Acute hypoxic respiratory failure on supplemental oxygen Acute on chronic COPD exacerbation ? CHF, reports bilateral lower extremity swelling Diffusely increased interstitial prominence suggestive of mild pulmonary edema UTI Normocytic anemia Bilateral lower extremity tingling Right ankle pain rule out fracture Tobacco use Alcohol use History of anxiety History of hypertension History of History of fall 3 weeks ago status post right hip ORIF on 09/08/2025 Plan Admit to med surge Supplemental oxygen BNP IV antibiotics-ceftriaxone BP management Duo nebs UA IV steroids given in ED Tom cath inserted in ED Urine culture Chest x-ray Blood cultures Lactic Echo ordered BNP Bilateral lower extremity venous ultrasound ordered UDS Diurese CT lumbar spine Right ankle x-ray Thiamine, folic acid, multivitamins, CIWA Diet Home medications reconciled DVT prophylaxis-SCDs PUD prophylaxis-not indicated history of GERD or GI bleed Discussed plan of care with patient and nurse PT eval Counseled patient on cessation of tobacco and alcohol use [id number] Behavior change smoking greater than 10 minutes about use of other options also gave option of nicotine patch [id number] Preventive counseling healthy eating habits, physical activity, and regular checkups Plan discussed with: Patient Date of Service: Sep 11, 2025 Billing Provider: RODNEY CONTRERAS Common Visit Codes: [id number] INP/OBS CARE (HIGH) Secondary Visit Codes: [id number] COUNSELING IND RODNEY CONTRERAS Sep 11, 2025 16:35
[2025-09-11] MEDS: IPRATROPIUM BROM 0.5 MG/2.5ML INH SOL NEB ONE (16:57)
[2025-09-11] MEDS: ALBUTEROL SULF 2.5 MG/0.5ML(0.5%) NEB SOLN NEB ONE (16:57)
[2025-09-11 17:36] LABS: Magnesium 1.7 mg/dL (1.6-2.6)
[2025-09-11] MEDS: IPRATROPIUM BROM 0.5 MG/2.5ML INH SOL NEB SCH (18:00)
[2025-09-11] MEDS: ALBUTEROL SULF 2.5 MG/0.5ML(0.5%) NEB SOLN NEB SCH (18:00)
[2025-09-11] MEDS ORDERED: HYDR-5139 PO (18:07)
[2025-09-11] MEDS ORDERED: MET50T PO (18:07)
[2025-09-11] MEDS: THIAMINE HCL 100 MG TAB PO ONE (18:23)
[2025-09-11] MEDS: MULTIPLE VITAMIN TAB PO ONE (18:23)
[2025-09-11] MEDS: FOLIC ACID 1 MG TAB PO ONE (18:23)
[2025-09-11] MEDS: FAMOTIDINE (10MG/ML) 2ML VL IV SCH (18:23)
[2025-09-11] MEDS: HYDROcodone-ACET 5/325MG TAB PO PRN (20:59)
[2025-09-11] MEDS: methylPREDNISolone SOD SUCC 125 MG/2 ML VL IV SCH (20:59)
--- NOTE | 2025-09-11 21:18 | DVH ---
Procedure: US BiLat Lower DVT Study Date and Requested Time: 09/11/2025 06:20 PM History: swelling Comparison: US BILAT LOWER DVT on DOS: 09/06/25 Technique: Multiple high resolution durham-scale images with and without compression obtained of the bilateral lower extremity veins, including the common femoral vein, deep femoral vein, proximal mid and distal superficial femoral vein, and popliteal vein. Additional limited images of the greater saphenous vein also obtained. Augmentation performed as indicated. Color and spectral doppler flow images obtained as indicated. Findings: No visible intraluminal venous thrombus. No evidence of incompressibility or abnormal color or spectral Doppler flow visualized in the bilateral lower extremity veins including, the common femoral vein, deep femoral vein, proximal mid and distal superficial femoral vein, and popliteal vein. Greater saphenous vein grossly unremarkable. Bilateral lower extremity soft tissue edema. Impression: No sonographic evidence of bilateral lower extremity deep venous thrombosis.
--- NOTE | 2025-09-11 21:36 | DVH ---
CLINICAL INDICATION: pain TECHNIQUE: XYXY R ANKLE 3 VIEW Comparison: None FINDINGS/IMPRESSION: : There is no evidence of acute fracture or dislocation. Soft tissues are unremarkable.
--- NOTE | 2025-09-11 21:37 | DVH ---
EXAM: CT LS SPINE WO CONTRAST HISTORY: tingling ble COMPARISON: None CTDIvol 21.66 mGy, DLP 682.99 mGy*cm. TECHNIQUE: Multiple axial CT images of the spine were obtained using bone algorithm. Axial and coronal reformatting was done. Bone and soft tissue windows were reviewed. FINDINGS: No evidence of definite acute fracture, spinal dislocation, or significant appearing acute subluxation is seen. Severe degenerative disc disease at L5-S1. Disc heights otherwise maintained. Mild diffuse posterior disc bulging throughout the lumbar spine without obvious spinal stenosis or large focal disc herniation. Mild bilateral foraminal stenosis at L4-5 and L5-S1. IMPRESSION: No acute osseous abnormality. No obvious high-grade spinal stenosis or significant foraminal stenosis.
[2025-09-11 21:46] LABS: Opiate Scree,Urine Pos (NEGATIVE)
[2025-09-11 21:47] LABS: Barbiturate Scree,Urine Neg (NEGATIVE)
[2025-09-11 21:48] LABS: Amphetamine Screen, Urine Neg (NEGATIVE); Benzodiazephine Screen, Urine Neg (NEGATIVE); Cannabinoid Screen, Urine Neg (NEGATIVE); Cocaine Screen, Urine Neg (NEGATIVE); Phencyclidine Screen, Urine Neg (NEGATIVE)
[2025-09-12] VITALS (18 sets, daily range): BP systolic 113–143; BP diastolic 72–87; PULSE 94–115; RESP 16–21; TEMP 97.6–98.8; O2SAT 83–100
[2025-09-12 05:39] LABS: Hematocrit 25.6 % (36.0-46.0); Hemoglobin 8.2 g/dL (12.2-16.2); Mean Corpuscular Hemoglobin 29.3 pg (28.0-32.0); Mean Corpuscular Volume 91.4 fL (80.0-100.0); Nucleated Red Blood Cells % 0.0 %
[2025-09-12 06:06] LABS: Alkaline Phosphatase 64 U/L (46-116); Anion Gap 7 (5-15); Calcium 8.8 mg/dL (8.7-10.4); Carbon Dioxide 31 mmol/L (20-31); Chloride 101 mmol/L (98-107); Potassium 4.1 mmol/L (3.5-5.1); Sodium 139 mmol/L (136-145)
[2025-09-12 06:08] LABS: Alanine Aminotransferase 9 U/L (7-40); BUN/Creatinine Ratio 25.0 (10.0-20.0); Blood Urea Nitrogen 12 mg/dL (9-23); Glucose 149 mg/dL (74-106)
[2025-09-12 06:09] LABS: Total Protein 5.6 g/dL (5.7-8.2)
[2025-09-12 06:10] LABS: Albumin 3.2 g/dL (3.2-4.8)
[2025-09-12 06:11] LABS: Bilirubin, Total 0.3 mg/dL (0.2-1.0)
[2025-09-12 08:47] LABS: COVID19 ANTIGEN SOFIA FIA NEGATIVE (NEGATIVE)
[2025-09-12] MEDS: THIAMINE HCL 100 MG TAB PO SCH (10:01)
[2025-09-12] MEDS: FUROSEMIDE 40 MG/4 ML VIAL IV SCH (10:01)
[2025-09-12] MEDS: FOLIC ACID 1 MG TAB PO SCH (10:01)
[2025-09-12] MEDS: MULTIPLE VITAMIN TAB PO SCH (10:02)
[2025-09-12] MEDS: ACETAMINOPHEN 325 MG TAB PO PRN (10:18)
--- NOTE | 2025-09-12 11:07 | DVHPN2 ---
Reviewed: Care Plan, H&P, Labs, Medications, Previous Orders, Radiology Changes from previous H/P or p: No Changes Cardiovascular: Edema Respiratory: Cough, Shortness of breath Objective Vitals Vital Signs Date Time Temp Pulse Resp B/P (MAP) Pulse Ox O2 Delivery O2 Flow Rate FiO2 09/12/25 10:41 102 18 100 09/12/25 10:35 Nasal Cannula* 3 32 09/12/25 10:01 125/76 09/12/25 04:53 97.6 97.6 Intake/Output Intake and Output 09/12/25 07:00 Intake Total 300 ml Output Total 700 ml Balance -400 ml Intake Oral 300 ml Output Urine Total 700 ml Medications Current Medications Medications Dose Ordered Sig/Cheryl Route Start Time Stop Time Status Last Admin Dose Admin Ceftriaxone Sodium 50 ml @ 100 mls/hr DAILY@09 IV 09/11/25 16:30 09/12/25 10:01 100 MLS/HR Acetaminophen/ Hydrocodone Bitart 1 tab Q4HP PRN PO 09/11/25 16:30 09/12/25 06:42 1 TAB Ondansetron HCl 4 mg Q4HP PRN IV 09/11/25 16:30 Acetaminophen 650 mg Q6HP PRN PO 09/11/25 16:30 09/12/25 10:18 650 MG Albuterol 2.5 mg Q4HWA NEB 09/11/25 18:00 09/12/25 10:35 2.5 MG Ipratropium [place] 0.5 mg Q4HWA NEB 09/11/25 18:00 09/12/25 10:35 0.5 MG Furosemide 40 mg DAILY IV 09/12/25 10:00 09/12/25 10:01 40 MG Thiamine HCl 100 mg DAILY PO 09/12/25 10:00 09/12/25 10:01 100 MG Folic Acid 1 mg DAILY PO 09/12/25 10:00 09/12/25 10:01 1 MG Multivitamins 1 tab DAILY PO 09/12/25 10:00 09/12/25 10:02 1 TAB Methylprednisolone Sodium Succinate 80 mg Q8HR IV 09/11/25 22:00 09/12/25 06:06 80 MG Famotidine 20 mg DAILY IV 09/11/25 17:30 09/12/25 10:01 20 MG Laboratory Results Laboratory Tests 09/12/25 04:45 Chemistry Test 09/11/25 14:34 09/12/25 04:45 Albumin 3.3 g/dL (3.2-4.8) 3.2 g/dL (3.2-4.8) Calcium Level 9.1 mg/dL (8.7-10.4) 8.8 mg/dL (8.7-10.4) Magnesium Level 1.7 mg/dL (1.6-2.6) Total Protein 5.7 g/dL (5.7-8.2) 5.6 g/dL (5.7-8.2) L Cardiac Markers Test 09/11/25 14:34 B-Type Natriuretic Peptide 38.97 pg/mL (0-100) LFT Test 09/11/25 14:34 09/12/25 04:45 Alanine Aminotransferase (ALT) 12 U/L (7-40) 9 U/L (7-40) Alkaline Phosphatase 68 U/L (46-116) 64 U/L (46-116) Aspartate Amino Transferase (AST) 11 U/L (13-40) L 12 U/L (13-40) L Total Bilirubin 0.3 mg/dL (0.2-1.0) 0.3 mg/dL (0.2-1.0) Urinalysis Test 09/11/25 15:09 Urine Color Colorless (Yellow) Urine Clarity Turbid (Clear) H Urine pH 7.5 (5.0-9.0) Urine Specific [place] 1.009 (1.001-1.035) Urine Protein Negative (Negative) Urine Ketones Negative (Negative) Urine Blood Negative /uL (Negative) Urine Nitrite 2+ (Negative) H Urine Bilirubin Negative (Negative) Urine Urobilinogen Normal mg/dL (Negative) Urine Leukocyte Esterase 3+ /uL (Negative) Urine RBC 1 /hpf (0 - 4) Urine Microscopic WBC 21 /HPF (0-5) H Urine Squamous Epithelial Cells Few /hpf (<5) Urine Bacteria None seen /hpf (None Seen) Urine Glucose Normal mg/dL (Normal) Microbiology Microbiology Date/Time Source Procedure Growth Status 09/11/25 15:09 Urine - [place] Urine Culture - Preliminary Resulted Labs and/or images reviewed: Labs reviewed by me, Image(s) reviewed by me Assessment/Plan Assessment/Plan Acute hypoxic respiratory failure on supplemental oxygen 3 L/min Acute on chronic COPD exacerbation Atrovent Solu-Medrol Bilateral lower extremity swelling: DVT ruled out, BNP normal Diffusely increased interstitial prominence suggestive of mild pulmonary edema UTI: Urine cultures Rocephin Normocytic anemia Right femur fracture status post ORIF on 09/08/2025 by Right ankle pain rule out fracture: X-ray negative for fracture Chronic current Tobacco use counseling 20 minutes Chronic current Alcohol use counseling: Thiamine folic acid Hypertension Anxiety PCP Dr. Haroon Swain Patient was recently discharged to [facility] two days back, she does not want to go back to [facility] Time spent 70 minutes Advanced care planning 20 minutes Patient is full code Plan discussed with: Patient Date of Service: Sep 12, 2025 Billing Provider: LEVI CURIEL MD Common Visit Codes: [id number] CARE 30-74 MIN LEVI CURIEL MD Sep 12, 2025 11:07
[2025-09-12] MEDS: NICOTINE 21MG/24 HR TOPICAL PATCH TD ONE (13:04)
[2025-09-12] MEDS: LACTULOSE 20Gm/30ML SOLN PO ONE (13:05)
[2025-09-13] VITALS (16 sets, daily range): BP systolic 124–135; BP diastolic 80–89; PULSE 63–117; RESP 16–20; TEMP 97.1–99; O2SAT 90–100
[2025-09-13] MEDS: NICOTINE 21MG/24 HR TOPICAL PATCH TD SCH (10:03)
--- NOTE | 2025-09-13 11:35 | DVHPN2 ---
Reviewed: Care Plan, H&P, Labs, Medications, Previous Orders, Radiology Changes from previous H/P or p: No Changes Cardiovascular: Edema Respiratory: Cough, Shortness of breath Objective Vitals Vital Signs Date Time Temp Pulse Resp B/P (MAP) Pulse Ox O2 Delivery O2 Flow Rate FiO2 09/13/25 10:00 99 Nasal Cannula 2.0 09/13/25 10:00 28 09/13/25 09:45 128/84 09/13/25 08:10 83 18 09/13/25 05:00 97.1 97.1 Intake/Output Intake and Output 09/13/25 07:00 Intake Total 600 ml Output Total 1150 ml Balance -550 ml Intake Oral 600 ml Output Urine Total 1150 ml Medications Current Medications Medications Dose Ordered Sig/Cheryl Route Start Time Stop Time Status Last Admin Dose Admin Ceftriaxone Sodium 50 ml @ 100 mls/hr DAILY@09 IV 09/11/25 16:30 09/13/25 09:44 100 MLS/HR Acetaminophen/ Hydrocodone Bitart 1 tab Q4HP PRN PO 09/11/25 16:30 09/13/25 10:09 1 TAB Ondansetron HCl 4 mg Q4HP PRN IV 09/11/25 16:30 Acetaminophen 650 mg Q6HP PRN PO 09/11/25 16:30 09/13/25 05:36 650 MG Albuterol 2.5 mg Q4HWA [facility] 09/11/25 18:00 09/13/25 06:20 2.5 MG Ipratropium [place] 0.5 mg Q4HWA [facility] 09/11/25 18:00 09/13/25 06:20 0.5 MG Furosemide 40 mg DAILY IV 09/12/25 10:00 09/13/25 09:45 40 MG Thiamine HCl 100 mg DAILY PO 09/12/25 10:00 09/13/25 09:46 100 MG Folic Acid 1 mg DAILY PO 09/12/25 10:00 09/13/25 09:46 1 MG Multivitamins 1 tab DAILY PO 09/12/25 10:00 09/13/25 09:46 1 TAB Methylprednisolone Sodium Succinate 80 mg Q8HR IV 09/11/25 22:00 09/13/25 05:36 80 MG Famotidine 20 mg DAILY IV 09/11/25 17:30 09/13/25 09:45 20 MG Nicotine 1 patch DAILY TD 09/13/25 10:00 09/13/25 10:03 1 PATCH Laboratory Results Laboratory Tests 09/12/25 04:45 Urinalysis Test 09/11/25 15:09 Urine Color Colorless (Yellow) Urine Clarity Turbid (Clear) H Urine pH 7.5 (5.0-9.0) Urine Specific [place] 1.009 (1.001-1.035) Urine Protein Negative (Negative) Urine Ketones Negative (Negative) Urine Blood Negative /uL (Negative) Urine Nitrite 2+ (Negative) H Urine Bilirubin Negative (Negative) Urine Urobilinogen Normal mg/dL (Negative) Urine Leukocyte Esterase 3+ /uL (Negative) Urine RBC 1 /hpf (0 - 4) Urine Microscopic WBC 21 /HPF (0-5) H Urine Squamous Epithelial Cells Few /hpf (<5) Urine Bacteria None seen /hpf (None Seen) Urine Glucose Normal mg/dL (Normal) Microbiology Microbiology Date/Time Source Procedure Growth Status 09/12/25 06:06 Nose MRSA Screen - Final Complete 09/11/25 15:09 Urine - [place] Urine Culture - Preliminary Resulted 09/11/25 14:44 Blood Blood Culture - Preliminary NO GROWTH AFTER 24 HOURS OF INCUBATION. Resulted Labs and/or images reviewed: Labs reviewed by me, Image(s) reviewed by me Assessment/Plan Assessment/Plan Acute hypoxic respiratory failure on supplemental oxygen 3 L/min Acute on chronic COPD exacerbation Atrovent Solu-Medrol Bilateral lower extremity swelling: DVT ruled out, BNP normal Diffusely increased interstitial prominence suggestive of mild pulmonary edema UTI: Urine cultures Rocephin Normocytic anemia Right femur fracture status post ORIF on 09/08/2025 by Right ankle pain rule out fracture: X-ray negative for fracture Chronic current Tobacco use counseling 20 minutes Chronic current Alcohol use counseling: Thiamine folic acid Hypertension Anxiety PCP Dr. Haroon Swain Patient was recently discharged to [facility] two days back, she does not want to go back to [facility] Time spent 50 minutes Advanced care planning 20 minutes Patient is full code Plan discussed with: Patient Date of Service: Sep 13, 2025 Billing Provider: LEVI CURIEL MD Common Visit Codes: [id number] INP/OBS CARE(HIGH) LEVI CURIEL MD Sep 13, 2025 11:35
[2025-09-13] MEDS: ONDANSETRON HCL 4 MG/2 ML VIAL IV PRN (17:02)
[2025-09-13] MEDS: FOLIC ACID 1 MG, MULTIPLE VITAMIN 10 ML, MAGNESIUM SULF SDV 50% 8 MEQ, THIAMINE INJ 100... INJ SCH (18:24)
[2025-09-14] VITALS (19 sets, daily range): BP systolic 110–138; BP diastolic 71–82; PULSE 77–101; RESP 14–20; TEMP 97.5–98.8; O2SAT 91–100
--- NOTE | 2025-09-14 11:32 | DVHPN2 ---
Reviewed: Care Plan, H&P, Labs, Medications, Previous Orders, Radiology Changes from previous H/P or p: No Changes Cardiovascular: Edema Respiratory: Cough, Shortness of breath Objective Vitals Vital Signs Date Time Temp Pulse Resp B/P (MAP) Pulse Ox O2 Delivery O2 Flow Rate FiO2 09/14/25 10:08 92 18 100 09/14/25 10:06 Nasal Cannula 1.0 09/14/25 10:06 24 09/14/25 09:10 110/72 09/14/25 09:00 98.0 98.0 Intake/Output Intake and Output 09/14/25 07:00 Intake Total 1444 ml Output Total 2850 ml Balance -1406 ml Intake Oral 1394 ml IV Total 50 ml Output Urine Total 2850 ml Medications Current Medications Medications Dose Ordered Sig/Cheryl Route Start Time Stop Time Status Last Admin Dose Admin Ceftriaxone Sodium 50 ml @ 100 mls/hr DAILY@09 IV 09/11/25 16:30 09/14/25 09:02 100 MLS/HR Acetaminophen/ Hydrocodone Bitart 1 tab Q4HP PRN PO 09/11/25 16:30 09/14/25 02:58 1 TAB Ondansetron HCl 4 mg Q4HP PRN IV 09/11/25 16:30 09/13/25 17:02 4 MG Acetaminophen 650 mg Q6HP PRN PO 09/11/25 16:30 09/13/25 13:38 650 MG Albuterol 2.5 mg Q4HWA [facility] 09/11/25 18:00 09/14/25 09:58 2.5 MG Ipratropium [place] 0.5 mg Q4HWA [facility] 09/11/25 18:00 09/14/25 09:58 0.5 MG Furosemide 40 mg DAILY IV 09/12/25 10:00 09/14/25 09:10 40 MG Multivitamins 1 tab DAILY PO 09/12/25 10:00 09/14/25 09:10 1 TAB Methylprednisolone Sodium Succinate 80 mg Q8HR IV 09/11/25 22:00 09/14/25 06:00 80 MG Famotidine 20 mg DAILY IV 09/11/25 17:30 09/14/25 09:09 20 MG Nicotine 1 patch DAILY TD 09/13/25 10:00 09/14/25 09:14 1 PATCH Folic Acid 1 mg/ Multivitamins 10 ml/Magnesium Sulfate 8 meq/ Thiamine HCl 100 mg/Dextrose 1,013.2 ml @ 125.001 mls/hr DAILY@1800 INJ 09/13/25 18:00 09/13/25 18:24 125.001 MLS/HR Laboratory Results Laboratory Tests 09/12/25 04:45 Urinalysis Test 09/11/25 15:09 Urine Color Colorless (Yellow) Urine Clarity Turbid (Clear) H Urine pH 7.5 (5.0-9.0) Urine Specific [place] 1.009 (1.001-1.035) Urine Protein Negative (Negative) Urine Ketones Negative (Negative) Urine Blood Negative /uL (Negative) Urine Nitrite 2+ (Negative) H Urine Bilirubin Negative (Negative) Urine Urobilinogen Normal mg/dL (Negative) Urine Leukocyte Esterase 3+ /uL (Negative) Urine RBC 1 /hpf (0 - 4) Urine Microscopic WBC 21 /HPF (0-5) H Urine Squamous Epithelial Cells Few /hpf (<5) Urine Bacteria None seen /hpf (None Seen) Urine Glucose Normal mg/dL (Normal) Microbiology Microbiology Date/Time Source Procedure Growth Status 09/12/25 06:06 Nose MRSA Screen - Final Complete 09/11/25 15:09 Urine - [place] Urine Culture - Preliminary Resulted 09/11/25 14:44 Blood Blood Culture - Preliminary NO GROWTH AFTER 48 HOURS OF INCUBATION. Resulted Labs and/or images reviewed: Labs reviewed by me, Image(s) reviewed by me Assessment/Plan Assessment/Plan Acute hypoxic respiratory failure on supplemental oxygen 3 L/min Acute on chronic COPD exacerbation Atrovent Solu-Medrol Bilateral lower extremity swelling: DVT ruled out, BNP normal Diffusely increased interstitial prominence suggestive of mild pulmonary edema UTI: Urine cultures pending, continue Rocephin Normocytic anemia Right femur fracture status post ORIF on 09/08/2025 by Right ankle pain rule out fracture: X-ray negative for fracture Chronic current Tobacco use counseling 20 minutes Chronic current Alcohol use counseling: Thiamine folic acid Hypertension Anxiety PCP Dr. Haroon Swain Patient was recently discharged to [facility] two days back, she does not want to go back to [facility] Time spent 50 minutes Advanced care planning 20 minutes Patient is full code Guillermo [phone] at bedside Plan discussed with: Patient My Orders Orders - LEVI CURIEL MD Procedure Category Date Status Time Folic Acid... PHA 09/13/25 In Process 18:00 Date of Service: Sep 14, 2025 Billing Provider: LEVI CURIEL MD Common Visit Codes: [id number] INP/OBS CARE(HIGH) LEVI CURIEL MD Sep 14, 2025 11:32
[2025-09-15] VITALS (21 sets, daily range): BP systolic 100–133; BP diastolic 61–87; PULSE 71–109; RESP 14–18; TEMP 97.7–98.3; O2SAT 90–100
[2025-09-15] MEDS ORDERED: LINEZOLID 600MG/300ML 300 ML IV SCH (12:00)
--- NOTE | 2025-09-15 12:08 | DVHPN2 ---
Reviewed: Care Plan, H&P, Labs, Medications, Previous Orders, Radiology Changes from previous H/P or p: No Changes Cardiovascular: Edema Respiratory: Cough, Shortness of breath Objective Vitals Vital Signs Date Time Temp Pulse Resp B/P (MAP) Pulse Ox O2 Delivery O2 Flow Rate FiO2 09/15/25 10:13 100 14 100 09/15/25 10:00 Nasal Cannula* 2 28 09/15/25 09:00 97.9 133/87 (102) 97.9 Intake/Output Intake and Output 09/15/25 07:00 Intake Total 1818 ml Output Total 2975 ml Balance -1157 ml Intake Oral 1718 ml IV Total 100 ml Output Urine Total 2975 ml Medications Current Medications Medications Dose Ordered Sig/Cheryl Route Start Time Stop Time Status Last Admin Dose Admin Ceftriaxone Sodium 50 ml @ 100 mls/hr DAILY@09 IV 09/11/25 16:30 09/15/25 08:46 100 MLS/HR Acetaminophen/ Hydrocodone Bitart 1 tab Q4HP PRN PO 09/11/25 16:30 09/15/25 08:48 1 TAB Ondansetron HCl 4 mg Q4HP PRN IV 09/11/25 16:30 09/13/25 17:02 4 MG Acetaminophen 650 mg Q6HP PRN PO 09/11/25 16:30 09/13/25 13:38 650 MG Albuterol 2.5 mg Q4HWA NEB 09/11/25 18:00 09/15/25 10:05 2.5 MG Ipratropium [place] 0.5 mg Q4HWA NEB 09/11/25 18:00 09/15/25 10:05 0.5 MG Furosemide 40 mg DAILY IV 09/12/25 10:00 09/15/25 08:47 40 MG Multivitamins 1 tab DAILY PO 09/12/25 10:00 09/15/25 08:47 1 TAB Methylprednisolone Sodium Succinate 80 mg Q8HR IV 09/11/25 22:00 09/15/25 05:29 80 MG Famotidine 20 mg DAILY IV 09/11/25 17:30 09/15/25 08:47 20 MG Nicotine 1 patch DAILY TD 09/13/25 10:00 09/14/25 09:14 1 PATCH Folic Acid 1 mg/ Multivitamins 10 ml/Magnesium Sulfate 8 meq/ Thiamine HCl 100 mg/Dextrose 1,013.2 ml @ 125.001 mls/hr DAILY@1800 INJ 09/13/25 18:00 09/14/25 18:15 125.001 MLS/HR Laboratory Results Laboratory Tests 09/12/25 04:45 Urinalysis Test 09/11/25 15:09 Urine Color Colorless (Yellow) Urine Clarity Turbid (Clear) H Urine pH 7.5 (5.0-9.0) Urine Specific [place] 1.009 (1.001-1.035) Urine Protein Negative (Negative) Urine Ketones Negative (Negative) Urine Blood Negative /uL (Negative) Urine Nitrite 2+ (Negative) H Urine Bilirubin Negative (Negative) Urine Urobilinogen Normal mg/dL (Negative) Urine Leukocyte Esterase 3+ /uL (Negative) Urine RBC 1 /hpf (0 - 4) Urine Microscopic WBC 21 /HPF (0-5) H Urine Squamous Epithelial Cells Few /hpf (<5) Urine Bacteria None seen /hpf (None Seen) Urine Glucose Normal mg/dL (Normal) Microbiology Microbiology Date/Time Source Procedure Growth Status 09/12/25 06:06 Nose MRSA Screen - Final Complete 09/11/25 15:09 Urine - [place] Urine Culture - Final Pseudomonas aeruginosa Enterococcus faecalis Complete 09/11/25 14:44 Blood Blood Culture - Preliminary NO GROWTH AFTER 72 HOURS OF INCUBATION. Resulted Labs and/or images reviewed: Labs reviewed by me, Image(s) reviewed by me Assessment/Plan Assessment/Plan Acute hypoxic respiratory failure on supplemental oxygen 3 L/min Acute on chronic COPD exacerbation Atrovent Solu-Medrol Bilateral lower extremity swelling: DVT ruled out, BNP normal Diffusely increased interstitial prominence suggestive of mild pulmonary edema Complicated UTI: Urine cultures growing Pseudomonas, start Levaquin 500 mg IV daily also showing E faecalis start Zyvox 600 mg IV q.12h, DC Rocephin Normocytic anemia Right femur fracture status post ORIF on 09/08/2025 by Right ankle pain rule out fracture: X-ray negative for fracture Chronic current Tobacco use counseling 20 minutes Chronic current Alcohol use counseling: Thiamine folic acid Hypertension Anxiety PCP Dr. Haroon Swain Patient was recently discharged to [facility] two days back, she does not want to go back to [facility] Time spent 50 minutes Advanced care planning 20 minutes Patient is full code Guillermo [phone] at bedside Patient will be discharged to shelter facility for two weeks of IV antibiotics for complicated UTI and for rehab for the fracture femur Patient was accepted at [facility] and rehab [facility] Discussed with the patient and she is agreeable. ADWOA Samuels at bedside Plan discussed with: Patient My Orders Orders - LEVI CURIEL MD Procedure Category Date Status Time Levofloxacin Levaquin PHA 09/16/25 Verified 10:00 Date of Service: Sep 15, 2025 Billing Provider: LEVI CURIEL MD Common Visit Codes: [id number] INP/OBS CARE(HIGH) Secondary Visit Codes: [id number] CARE PLAN 30 MINUTES LEVI CURIEL MD Sep 15, 2025 12:08
--- NOTE | 2025-09-15 12:21 | DVHDS2 ---
Discharge Summary Date of Admission Sep 11, 2025 at 16:26 Date of Discharge: Sep 15, 2025 Admitting Diagnosis Increased swelling of the bilateral lower extremities generalized weakness Wounds: Fracture right femur Labs/Diagnostic Data: Laboratory Results Test 09/12/25 07:47 09/12/25 04:45 09/11/25 15:09 09/11/25 14:34 Influenza Type A Antigen Negative (Negative) Influenza Type B Antigen Negative (Negative) SARS-CoV-2 Antigen (Rapid) Negative (NEGATIVE) White Blood Count 6.3 10^3/uL (4.4-10.8) Red Blood Count 2.80 10^6/uL (4.0-5.20) Hemoglobin 8.2 g/dL (12.2-16.2) Hematocrit 25.6 % (36.0-46.0) Mean Corpuscular Volume 91.4 fL (80.0-100.0) Mean Corpuscular Hemoglobin 29.3 pg (28.0-32.0) Mean Corpuscular Hemoglobin Concent 32.0 g/dL (32.0-36.0) Red Cell Distribution Width 15.7 % (11.8-14.3) Platelet Count 464 10^3/uL (140-450) Mean Platelet Volume 7.2 fL (6.9-10.8) Neutrophils (%) (Auto) 93.9 % (37.0-80.0) Lymphocytes (%) (Auto) 4.9 % (10.0-50.0) Monocytes (%) (Auto) 1.2 % (0.0-12.0) Eosinophils (%) (Auto) 0.0 % (0.0-7.0) Basophils (%) (Auto) 0.0 % (0.0-2.0) Neutrophils # (Auto) 5.9 10 ^3/uL (1.6-8.6) Lymphocytes # (Auto) 0.3 10 ^3/uL (0.4-5.4) Monocytes # (Auto) 0.1 10 ^3/uL (0-1.3) Eosinophils # (Auto) 0 10 ^3/uL (0-0.8) Basophils # (Auto) 0 10 ^3/uL (0-0.2) Nucleated Red Blood Cells 0.0 % Sodium Level 139 mmol/L (136-145) Potassium Level 4.1 mmol/L (3.5-5.1) Chloride Level 101 mmol/L (98-107) Carbon Dioxide Level 31 mmol/L (20-31) Anion Gap 7 (5-15) Blood Urea Nitrogen 12 mg/dL (9-23) Creatinine 0.48 mg/dL (0.550-1.02) Glomerular Filtration Rate Calc 110 mL/min (>90) BUN/Creatinine Ratio 25.0 (10.0-20.0) Serum Glucose 149 mg/dL (74-106) Calcium Level 8.8 mg/dL (8.7-10.4) Total Bilirubin 0.3 mg/dL (0.2-1.0) Aspartate Amino Transferase (AST) 12 U/L (13-40) Alanine Aminotransferase (ALT) 9 U/L (7-40) Alkaline Phosphatase 64 U/L (46-116) Total Protein 5.6 g/dL (5.7-8.2) Albumin 3.2 g/dL (3.2-4.8) Urine Color Colorless (Yellow) Urine Clarity Turbid (Clear) Urine pH 7.5 (5.0-9.0) Urine Specific [place] 1.009 (1.001-1.035) Urine Protein Negative (Negative) Urine Ketones Negative (Negative) Urine Blood Negative /uL (Negative) Urine Nitrite 2+ (Negative) Urine Bilirubin Negative (Negative) Urine Urobilinogen Normal mg/dL (Negative) Urine Leukocyte Esterase 3+ /uL (Negative) Urine RBC 1 /hpf (0 - 4) Urine Microscopic WBC 21 /HPF (0-5) Urine Squamous Epithelial Cells Few /hpf (<5) Urine Bacteria None seen /hpf (None Seen) Urine Glucose Normal mg/dL (Normal) Urine Opiates Screen Pos (NEGATIVE) Urine Fentanyl Screen Neg (NEGATIVE) Urine Barbiturates Screen Neg (NEGATIVE) Urine Phencyclidine Screen Neg (NEGATIVE) Urine Amphetamines Screen Neg (NEGATIVE) Urine Benzodiazepines Screen Neg (NEGATIVE) Urine Cocaine Screen Neg (NEGATIVE) Urine Cannabinoids Screen Neg (NEGATIVE) Lactic Acid Level 0.8 mmol/L (0.4-2.0) Magnesium Level 1.7 mg/dL (1.6-2.6) B-Type Natriuretic Peptide 38.97 pg/mL (0-100) Plasma/Serum Blood Alcohol < 3.0 mg/dL (<10) Other Laboratory Tests 09/12/25 04:45 Brief Hx & Hospital Course: 55-year-old female who underwent ORIF for right femur fracture on 09/08/2025 by discharged to [facility] and brought back by family to the ER and got admitted for increasing swelling of the bilateral lower extremities with the shortness of breaths patient was found to have acute hypoxic respiratory failure and COPD exacerbation started on albuterol Atrovent med neb treatment DVT ruled out BNP is normal x-ray showed mild pulmonary edema patient has had complicated UTI started with Rocephin urine cultures grew Pseudomonas and E faecalis started on Levaquin and Zyvox IV which she will receive for two weeks. Rocephin discontinued chronic current tobacco abuse consult for 20 minutes also history of alcohol abuse treated with a banana bag. Received physical therapy Patient is being discharged to under senior living facility for rehab for femur fracture and for IV antibiotics for two weeks for complicated UTI. The plan is acceptable with the patient and her . Consults/Reason for consult None Operations or Procedures ORIF right femur fracture Condition at Discharge: Fair Final Diagnosis/Problems List Acute hypoxic respiratory failure on supplemental oxygen 3 L/min Acute on chronic COPD exacerbation Atrovent Solu-Medrol Bilateral lower extremity swelling: DVT ruled out, BNP normal Diffusely increased interstitial prominence suggestive of mild pulmonary edema Complicated UTI: Urine cultures growing Pseudomonas, start Levaquin 500 mg IV daily also showing E faecalis start Zyvox 600 mg IV q.12h, DC Rocephin Normocytic anemia Right femur fracture status post ORIF on 09/08/2025 by Right ankle pain rule out fracture: X-ray negative for fracture Chronic current Tobacco use counseling 20 minutes Chronic current Alcohol use counseling: Thiamine folic acid Hypertension Anxiety Discharge Disposition: [facility] Discharge Instruct/Medications Diet: Cardiac 2g Na,low cholest Activity: Light activity Follow Up/Referral: Follow up with the halfway Medications: Levaquin 500 mg IV daily for two weeks Zyvox 600 mg IV q.12h for two weeks Both for complicated UTI See list for other meds Scheduled Metoprolol Tartrate (Lopressor Tablet), 1 TAB PO BID, (Reported) Miscellaneous Medications Hydralazine HCl (Hydralazine Hydrochloride), 10 MG PO, (Reported) 39 (Time taken for discharge summary 39 minutes) Discharge Statement: "Patient was advised to return to the ER or call 911 if any headaches, dizziness, shortness of breath, chest pain, abdominal pain, bleeding, fevers, or worsening of medical condition. Patient was counseled about treatment plan, medications, possible side effects, patientverbalized understanding. All questions were answered to the best of my ability. This discharge took greater then 30 minutes in planning, reviewing documentation, counseling the patient, and discussing with other team members." ASSESSMENT ASSESSMENT Hospital Course Marginally improved Assessment Acute hypoxic respiratory failure on supplemental oxygen 3 L/min Acute on chronic COPD exacerbation Atrovent Solu-Medrol Bilateral lower extremity swelling: DVT ruled out, BNP normal Diffusely increased interstitial prominence suggestive of mild pulmonary edema Complicated UTI: Urine cultures growing Pseudomonas, start Levaquin 500 mg IV daily also showing E faecalis start Zyvox 600 mg IV q.12h, DC Rocephin Normocytic anemia Right femur fracture status post ORIF on 09/08/2025 by Right ankle pain rule out fracture: X-ray negative for fracture Chronic current Tobacco use counseling 20 minutes Chronic current Alcohol use counseling: Thiamine folic acid Hypertension Anxiety Date of Service: Sep 15, 2025 Billing Provider: LEVI CURIEL MD Common Visit Codes: [id number] DISCH DAY >30min LEVI CURIEL MD Sep 15, 2025 12:21
--- NOTE | 2025-09-15 14:27 | MEDREC ---
[facility] ASP Intervention Section I [facility] ASP Intervention: Duplication of therapy (PLEASE CONSIDER TO D/C LINEZOLID SINCE PSEUDOMONAS ARERUGINOSA AND ENTEROCOCCUS FAECALIS ARE BOTH SUSCEPTIBLE TO LEVOFLOXACIN) GAYATRI CRUZ PHARMACIST Sep 15, 2025 14:27
[2025-09-15] MEDS: LINEZOLID 600MG/300ML 300 ML IV ONE (15:15)
[2025-09-15] MEDS: FOLIC ACID 1 MG, MULTIPLE VITAMIN 10 ML, MAGNESIUM SULF SDV 50% 8 MEQ, THIAMINE INJ 100... INJ ONE (16:15)
[2025-09-15] MEDS ORDERED: FOLIC ACID 1 MG TAB PO ONE (18:00)
[2025-09-15] MEDS ORDERED: MAGNESIUM OXIDE 400 MG TAB PO ONE (18:00)
[2025-09-15] MEDS ORDERED: FOLIC ACID 1 MG, MULTIPLE VITAMIN 10 ML, MAGNESIUM SULF SDV 50% 8 MEQ, THIAMINE INJ 100... INJ SCH (18:00)
[2025-09-15] MEDS ORDERED: THIAMINE HCL 100 MG TAB PO ONE (18:00)
[2025-09-15] MEDS: LINEZOLID 600MG/300ML 300 ML IV SCH (21:09)
[2025-09-16] VITALS (18 sets, daily range): BP systolic 121–137; BP diastolic 71–91; PULSE 82–116; RESP 16–20; TEMP 97.2–98; O2SAT 92–100
[2025-09-16] MEDS: FOLIC ACID 1 MG TAB PO SCH (09:30)
[2025-09-16] MEDS: THIAMINE HCL 100 MG TAB PO SCH (09:30)
[2025-09-16] MEDS: MAGNESIUM OXIDE 400 MG TAB PO SCH (09:30)
[2025-09-16] MEDS: MULTIPLE VITAMIN TAB PO SCH (09:31)
[2025-09-16] MEDS: LORazepam 2MG/ML-1ML VIAL IV ONE (12:41)
[2025-09-17] VITALS (20 sets, daily range): BP systolic 103–133; BP diastolic 61–81; PULSE 72–108; RESP 16–20; TEMP 97.5–97.9; O2SAT 91–100
[2025-09-17 09:05] LABS: Base Excess 0.1 mmol/L (-2.0-3.0)
[2025-09-17 09:26] LABS: Hematocrit 31.3 % (36.0-46.0); Hemoglobin 10.1 g/dL (12.2-16.2); Mean Corpuscular Hemoglobin 28.6 pg (28.0-32.0); Mean Corpuscular Volume 88.7 fL (80.0-100.0); Nucleated Red Blood Cells % 0.0 %
[2025-09-17 09:37] LABS: Alanine Aminotransferase 20 U/L (7-40); Albumin 3.9 g/dL (3.2-4.8); Alkaline Phosphatase 75 U/L (46-116); Anion Gap 12 (5-15); BUN/Creatinine Ratio 24.3 (10.0-20.0); Blood Urea Nitrogen 17 mg/dL (9-23); Calcium 9.1 mg/dL (8.7-10.4); Carbon Dioxide 29 mmol/L (20-31); Chloride 98 mmol/L (98-107); Potassium 3.6 mmol/L (3.5-5.1); Sodium 139 mmol/L (136-145); Total Protein 6.5 g/dL (5.7-8.2)
[2025-09-17 09:38] LABS: Bilirubin, Total 0.4 mg/dL (0.2-1.0)
--- NOTE | 2025-09-17 09:43 | DVH ---
EXAM: XY CHEST PORTABLE Indication: SHORTNESS OF BREATH Technique: Single frontal view of the chest was obtained Comparison: XY CHEST PORTABLE on DOS: 09/11/25, XY CHEST XRAY 1 VIEW on DOS: 09/09/25, XY CHEST PORTABLE on DOS: 09/07/25 FINDINGS: Lines and Tubes: None Lungs: No focal consolidation. Pleura: No effusion. No pneumothorax. Cardiomediastinal contours: Unremarkable Bones: No acute osseous abnormality. IMPRESSION: No acute cardiopulmonary disease.
[2025-09-17 09:45] LABS: INR 0.93 (0.9-1.15); Partial Thromboplastin Time 20.9 SEC (24.5-34.5); Prothrombin Time 9.9 sec (9.3-11.8)
--- NOTE | 2025-09-17 09:52 | RESUS ---
CODE ASSIST ASSESSSMENT Initial Information Code Assist Date: Sep 17, 2025 Code Assist Time: 08:38 Location of Arrest: [facility] 271[facility] Provider Name Dr Stephenie Fernandez-Resident Time Notified: 08:38 Crash Cart Opened and Supplies: No Comment: Residents at bedside Situation Staff concerned/worried, speci: SaO2 <90, RR >28 Situation comment: nurse museum assistant called rapid response due to spo2 dropped to 60's after getting back to bed from using commode Background Background: recent hip surgery Assessment Blood Pressure Systolic: 125 Blood Pressure Diastolic: 80 Respiratory Rate: 28 O2 Sat by Pulse Oximetry: 96 Assessment comment: short of breath but talking, color wnl Recommendations/Interventions Procedures: ABG, CXR Portable, CMP, CBC, PT/PTT, Troponin, EKG, O2 Mask/NC Follow up Report Follow up Report abg wnl, pending other labs, Dr Judit Ochoa aware of rapid per Viola RN Team Members Team Members Dr Stephenie Fernandez Resident, Tera Gutierrez RNteacher visually impaired, Deepthi ORONA ICU Resource, Rae Reyes RN ICU Charge, Jimbo ORONA floor charge, Viola ORONA primary Tera Mcduffie Sep 17, 2025 09:52
[2025-09-17] MEDS: methylPREDNISolone SOD SUCC 125 MG/2 ML VL IV ONE (09:57)
[2025-09-17] MEDS: ENOXAPARIN SOD 40 MG/0.4 ML SYRINGE SC SCH (09:58)
[2025-09-17] MEDS: ALPRAZolam 0.5 MG TAB PO SCH (10:00)
[2025-09-17 10:11] LABS: Glucose 121 mg/dL (74-106)
[2025-09-17 10:56] LABS: Lactic Acid w/Reflex 3.0 mmol/L (0.4-2.0)
[2025-09-17] MEDS ORDERED: HYDR-4902 PO (14:28)
[2025-09-17] MEDS ORDERED: FURO1TAB31 PO (14:28)
[2025-09-17] MEDS ORDERED: ALPR1TAB2 PO (14:28)
[2025-09-17 15:21] LABS: Base Excess 1.7 mmol/L (-2.0-3.0)
[2025-09-18] VITALS (11 sets, daily range): BP systolic 115–139; BP diastolic 58–78; PULSE 76–124; RESP 17–20; TEMP 36.5; O2SAT 95–100
--- NOTE | 2025-09-18 08:06 | ECG ---
[facility] Test Date: 2025-09-17 Test Time: 09:01:41 Pat Name: KAMERON FARIAS Department: Respiratoy Room: 0293 A Gender: F Rehabilitation Physician: : [id number] Requested By: CHARLI LIAO Order Number: [id number] Reading MD: Paco Hill Measurements Intervals Lindsay Rate: 104 P: 81 MO: 176 QRS: 48 QRSD: 79 T: 58 QT: 355 QTc: 467 Interpretive Statements Sinus tachycardia Ventricular premature complex Aberrant conduction of SV complex(es) RSR' in V1 or V2, right VCD or RVH Electronically Signed On 09-18-2025 11:11:36 PST by Paco Hill Please click the below link to view image of tracing.
[2025-09-18] MEDS ORDERED: ALPR1TAB2 PO (11:28)
--- NOTE | 2025-09-18 11:33 | DVHPN2 ---
Reviewed: Care Plan, H&P, Labs, Medications, Previous Orders, Radiology Changes from previous H/P or p: No Changes Cardiovascular: Edema Respiratory: Cough, Shortness of breath Objective Vitals Vital Signs Date Time Temp Pulse Resp B/P (MAP) Pulse Ox O2 Delivery O2 Flow Rate FiO2 09/18/25 10:35 84 18 09/18/25 10:31 121/76 09/18/25 10:27 95 Nasal Cannula 2.0 09/18/25 10:27 28 09/18/25 09:00 97.7 97.7 Intake/Output Intake and Output 09/18/25 07:00 Intake Total 1800 ml Output Total 1800 ml Balance 0 ml Intake Oral 1400 ml IV Total 400 ml Output Urine Total 1800 ml Medications Current Medications Medications Dose Ordered Sig/Cheryl Route Start Time Stop Time Status Last Admin Dose Admin Acetaminophen/ Hydrocodone Bitart 1 tab Q4HP PRN PO 09/11/25 16:30 09/18/25 10:34 1 TAB Ondansetron HCl 4 mg Q4HP PRN IV 09/11/25 16:30 09/13/25 17:02 4 MG Acetaminophen 650 mg Q6HP PRN PO 09/11/25 16:30 09/16/25 11:30 650 MG Albuterol 2.5 mg Q4HWA NEB 09/11/25 18:00 09/18/25 10:27 2.5 MG Ipratropium [place] 0.5 mg Q4HWA NEB 09/11/25 18:00 09/18/25 10:27 0.5 MG Furosemide 40 mg DAILY IV 09/12/25 10:00 09/18/25 10:31 40 MG Methylprednisolone Sodium Succinate 80 mg Q8HR IV 09/11/25 22:00 09/18/25 06:19 80 MG Famotidine 20 mg DAILY IV 09/11/25 17:30 09/18/25 10:31 20 MG Nicotine 1 patch DAILY TD 09/13/25 10:00 09/16/25 09:29 1 PATCH Levofloxacin/ Dextrose 100 ml @ 100 mls/hr DAILY IV 09/16/25 10:00 09/18/25 10:43 100 MLS/HR Linezolid 300 ml @ 150 mls/hr Q12HR IV 09/15/25 12:00 Cancel Linezolid 300 ml @ 150 mls/hr BID IV 09/15/25 22:00 09/18/25 10:43 150 MLS/HR Folic Acid 1 mg DAILY PO 09/16/25 10:00 09/18/25 10:33 1 MG Multivitamins 1 tab DAILY PO 09/16/25 10:00 09/18/25 10:33 1 TAB Magnesium Oxide 400 mg DAILY PO 09/16/25 10:00 09/18/25 10:32 400 MG Thiamine HCl 100 mg DAILY PO 09/16/25 10:00 09/18/25 10:48 100 MG Folic Acid 1 mg/ Multivitamins 10 ml/Magnesium Sulfate 8 meq/ Thiamine HCl 100 mg/Dextrose 1,013.2 ml @ 125.001 mls/hr DAILY@1800 INJ 09/15/25 18:00 09/16/25 02:07 Cancel Enoxaparin Sodium 40 mg DAILY SC 09/17/25 10:00 09/18/25 10:32 40 MG Alprazolam 1 mg TID PO 09/17/25 09:30 09/18/25 06:19 1 MG Laboratory Results Laboratory Tests 09/17/25 08:55 Urinalysis Test 09/11/25 15:09 Urine Color Colorless (Yellow) Urine Clarity Turbid (Clear) H Urine pH 7.5 (5.0-9.0) Urine Specific [place] 1.009 (1.001-1.035) Urine Protein Negative (Negative) Urine Ketones Negative (Negative) Urine Blood Negative /uL (Negative) Urine Nitrite 2+ (Negative) H Urine Bilirubin Negative (Negative) Urine Urobilinogen Normal mg/dL (Negative) Urine Leukocyte Esterase 3+ /uL (Negative) Urine RBC 1 /hpf (0 - 4) Urine Microscopic WBC 21 /HPF (0-5) H Urine Squamous Epithelial Cells Few /hpf (<5) Urine Bacteria None seen /hpf (None Seen) Urine Glucose Normal mg/dL (Normal) Blood Gas Results Test 09/17/25 15:14 Arterial Blood pH 7.455 (7.350-7.450) FiO2 % 21.0 Microbiology Microbiology Date/Time Source Procedure Growth Status 09/12/25 06:06 Nose MRSA Screen - Final Complete 09/11/25 15:09 Urine - [place] Urine Culture - Final Pseudomonas aeruginosa Enterococcus faecalis Complete 09/11/25 14:44 Blood Blood Culture - Final NO GROWTH AFTER 5 DAYS OF INCUBATION. Complete Labs and/or images reviewed: Labs reviewed by me, Image(s) reviewed by me Assessment/Plan Assessment/Plan Acute hypoxic respiratory failure on supplemental oxygen 3 L/min Acute on chronic COPD exacerbation Atrovent Solu-Medrol Bilateral lower extremity swelling: DVT ruled out, BNP normal Diffusely increased interstitial prominence suggestive of mild pulmonary edema Complicated UTI: Urine cultures growing Pseudomonas, start Levaquin 500 mg IV daily also showing E faecalis start Zyvox 600 mg IV q.12h, DC Rocephin Normocytic anemia Right femur fracture status post ORIF on 09/08/2025 by Right ankle pain rule out fracture: X-ray negative for fracture Chronic current Tobacco use counseling 20 minutes Chronic current Alcohol use counseling: Thiamine folic acid Hypertension Anxiety Patient was discharged home on home health for IV antibiotics on 09/17/2025 creative services specialist making arrangements for home health No new complaints ADWOA Andino at bedside Plan discussed with: Patient My Orders Orders - LEVI CURIEL MD Procedure Category Date Status Time * [place] CONS 09/17/25 Transmitted Consult Refer To Home Health JOSTIN 09/17/25 In Process 14:23 * [place] CONS 09/17/25 Transmitted Consult Discharge DISCHARGE 09/17/25 Transmitted 14:25 Abg W/ Co-Ox RT 09/17/25 Logged 14:59 Date of Service: Sep 18, 2025 Billing Provider: LEVI CURIEL MD Common Visit Codes: [id number] INP/OBS CARE(HIGH) LEVI CURIEL MD Sep 18, 2025 11:33
== END 2025-09-18 16:40 | disposition home health service (06) | DRG 133 ==
LOC: ER 13:49 → EDBD 13:49 → OVERFLOW 16:26 → WEST WING 17:47
PROVIDERS: ADMIT Family Medicine; ATTEND Family Medicine
PROC: 05H933Z Insertion of Infusion Device into Right Brachial Vein, Percutaneous Approach (ICD-10-PCS; principal; 2025-09-15)
PROC: B54MZZA Ultrasonography of Right Upper Extremity Veins, Guidance (ICD-10-PCS; 2025-09-15)
DX: J96.01 Acute respiratory failure with hypoxia (principal); B96.5 Pseudomonas (aeruginosa) (mallei) (pseudomallei) as the cause of diseases classified elsewhere; N39.0 Urinary tract infection, site not specified; J44.1 Chronic obstructive pulmonary disease with (acute) exacerbation; D64.9 Anemia, unspecified; I10 Essential (primary) hypertension; Z20.822 Contact with and (suspected) exposure to COVID-19; F17.210 Nicotine dependence, cigarettes, uncomplicated; F41.9 Anxiety disorder, unspecified; Z88.0 Allergy status to penicillin; Z82.5 Family history of asthma and other chronic lower respiratory diseases; Z80.8 Family history of malignant neoplasm of other organs or systems; Z71.6 Tobacco abuse counseling
CPT/HCPCS: 36415; 36600; 71045; 72131; 73610; 80053; 80307; 80320; 81001; 82805; 82962; 83605; 83735; 83880; 84484; 85025; 85610; 85730; 87040; 87081; 87086; 87088; 87186; 87426; 87804; 93005; 93970; 94640; 96374; 97110; 97116; 97163; 97530; 99291; 99292; G0378; J1956; J2405; J3490